=== PATIENT | female | born 1955 | race Caucasian/White ===

== ENCOUNTER 2017-11-12 19:18 | Inpatient (IN) | payer BC, SELFPAY ==
[2017-11-12 19:31] VITALS: BP 156/72; RESP 36; TEMP 37.1; O2SAT 84; BMI 25.0
[2017-11-12 19:55] VITALS: PULSE 102; PULSE 96
--- NOTE | 2017-11-12 19:58 | HMH.EDSOB ---
ED Disposition Clinical Impression: Flu, Acute exacerbation of chronic obstructive airways disease Disposition: Admitted as Observation Condition on Discharge: Good - Critical Care Critical Care Time: No Attestation: On , the high probability of a clinically significant, sudden or life threatening deterioration of the following system(s) required my full and direct attention, intervention and personal management. The time I documented below is in addition to time spent performing reported procedures but includes the following listed in this critical care notation. Medical Decision Making - Medical Records Medical records reviewed: Yes: I reviewed the patient's medical records. Vital Signs: 11/12/17 19:31 Temperature 98.8 F Temperature Source Oral Respiratory Rate 36 H Blood Pressure [Right Arm] 156/72 Blood Pressure Mean [Right Arm] 100 Blood Pressure Source [Right Arm] Automatic Cuff Blood Pressure Position [Right Arm] Supine 02 Sat by Pulse Oximetry 84 L Oxygen Delivery Method Room Air Oxygen Flow Rate (LPM) 5 - Lab Data Lab results reviewed: Yes: I reviewed the patient's lab results. Lab Results 11/12/17 19:45: WBC 9.0, RBC 4.64, Hgb 14.1, Hct 44.3, MCV 95.6, MCH 30.4, MCHC 31.8, RDW 13.8, Plt Count 179, MPV 8.6, Neut % (Auto) 85.2 H, Lymph % (Auto) 6.9 L, [place] % (Auto) 6.7, Eos % (Auto) 0.5, Baso % (Auto) 0.6, Neut # (Auto) 7.7, Lymph # (Auto) 0.6 L, [place] # (Auto) 0.6, Eos # (Auto) 0.1, Baso # (Auto) 0.1, Total Counted 100, Neutrophils % (Manual) 93 H, Lymphocytes % (Manual) 4 L, Monocytes % (Manual) 3, Platelet Estimate Normal, RBC Morphology Not Reportable, Stomatocytes 2+ 11/12/17 19:45: Chlamy pneumoniae PCR Not detected, Adenovirus (PCR) Not detected, B.parapertussis DNA PCR Not detected, Coronavirus OC43 (PCR) Not detected, Coronavirus HKU1 (PCR) Not detected, Coronavirus 229E (PCR) Not detected, Coronavirus NL63 (PCR) Not detected, Human Metapneumovir PCR Not detected, Influenza A (H1) PCR Not detected, Influ A (H1N1/09) PCR Not detected, Influenza A (H3) PCR Detected A, Influenza Type A (PCR) Not detected, Influenza Type B (PCR) Not detected, M. pneumoniae (PCR) Not detected, Parainfluenza 1 (PCR) Not detected, Parainfluenza 2 (PCR) Not detected, Parainfluenza 3 (PCR) Not detected, Parainfluenza 4 (PCR) Not detected, RSV (PCR) Not detected, Entero/Rhino (PCR) Not detected 11/12/17 20:22: Sodium 136, Potassium 3.5, Chloride 101, Carbon Dioxide 25, Anion Gap 13.5, BUN 10, Creatinine 0.98, Estimated Creat Clear 56, Estimated GFR 57 L, Est GFR ( Amer) > 60, Glucose 130 H, Calcium 8.8, Total Bilirubin 0.3, AST 25, ALT 25, Alkaline Phosphatase 71, Total Protein 7.2, Albumin 3.7, Globulin 3.5 H, Albumin/Globulin Ratio 1.1 11/12/17 20:22: Lactic Acid 1.5 11/12/17 20:22: Specimen Source Right radial, O2 % 36%, Bruce Test Acceptable Result diagrams: 11/12/17 19:45 11/12/17 20:22 Orders (Tests/Meds): ED MEDICATIONS Discontinued Medications Generic Name Dose Route Start Last Admin Trade Name Freq PRN Reason Stop Dose Admin Albuterol/Ipratropium 3 ml 11/12/17 19:55 11/12/17 19:57 Duoneb 3ml Neb IH 11/12/17 19:56 3 ml ONCE ONE Administration Methylprednisolone Sodium Succinate 125 mg 11/12/17 20:13 11/12/17 20:16 Solu-Medrol 125mg/2ml Vial IM 11/12/17 20:14 125 mg ONCE ONE Administration Methylprednisolone Sodium Succinate 125 mg 11/12/17 20:40 Solu-Medrol 125mg/2ml Vial IV 11/12/17 20:41 ONCE ONE ORDERS Category Date Time Status XR chest portable Stat Exams 11/12/17 20:09 Taken Cardiac Enzymes Stat Lab 11/12/17 20:22 Received Blood Culture Stat Micro 11/12/17 19:45 Received ABG [Arterial Blood Gas] Stat RT 11/12/17 20:12 Ordered Arterial Blood Gas Routine RT 11/12/17 20:22 Results - Radiology Data #1 Image Reviewed: Yes I reviewed the patient's radiology results Preliminary Findings: Normal/NAD - ECG Data Tracing #1 I re
--- NOTE | 2017-11-12 20:01 | ED_ITS ---
ED Disposition Clinical Impression: Flu, Acute exacerbation of chronic obstructive airways disease Disposition: Admitted as Observation Condition on Discharge: Good - Critical Care Critical Care Time: No Attestation: On , the high probability of a clinically significant, sudden or life threatening deterioration of the following system(s) required my full and direct attention, intervention and personal management. The time I documented below is in addition to time spent performing reported procedures but includes the following listed in this critical care notation. Medical Decision Making - Medical Records Medical records reviewed: Yes: I reviewed the patient's medical records. Vital Signs: 11/12/17 19:31 Temperature 98.8 F Temperature Source Oral Respiratory Rate 36 H Blood Pressure [Right Arm] 156/72 Blood Pressure Mean [Right Arm] 100 Blood Pressure Source [Right Arm] Automatic Cuff Blood Pressure Position [Right Arm] Supine 02 Sat by Pulse Oximetry 84 L Oxygen Delivery Method Room Air Oxygen Flow Rate (LPM) 5 - Lab Data Lab results reviewed: Yes: I reviewed the patient's lab results. Lab Results 11/12/17 19:45: WBC 9.0, RBC 4.64, Hgb 14.1, Hct 44.3, MCV 95.6, MCH 30.4, MCHC 31.8, RDW 13.8, Plt Count 179, MPV 8.6, Neut % (Auto) 85.2 H, Lymph % (Auto) 6.9 L, [place] % (Auto) 6.7, Eos % (Auto) 0.5, Baso % (Auto) 0.6, Neut # (Auto) 7.7 , Lymph # (Auto) 0.6 L, [place] # (Auto) 0.6, Eos # (Auto) 0.1, Baso # (Auto) 0.1, Total Counted 100, Neutrophils % (Manual) 93 H, Lymphocytes % (Manual) 4 L, Monocytes % (Manual) 3, Platelet Estimate Normal, RBC Morphology Not Reportable , Stomatocytes 2+ 11/12/17 19:45: Chlamy pneumoniae PCR Not detected, Adenovirus (PCR) Not detected, B.parapertussis DNA PCR Not detected, Coronavirus OC43 (PCR) Not detected, Coronavirus HKU1 (PCR) Not detected, Coronavirus 229E (PCR) Not detected, Coronavirus NL63 (PCR) Not detected, Human Metapneumovir PCR Not detected, Influenza A (H1) PCR Not detected, Influ A (H1N1/09) PCR Not detected , Influenza A (H3) PCR Detected A, Influenza Type A (PCR) Not detected, Influenza Type B (PCR) Not detected, M. pneumoniae (PCR) Not detected, Parainfluenza 1 (PCR) Not detected, Parainfluenza 2 (PCR) Not detected, Parainfluenza 3 (PCR) Not detected, Parainfluenza 4 (PCR) Not detected, RSV (PCR ) Not detected, Entero/Rhino (PCR) Not detected 11/12/17 20:22: Sodium 136, Potassium 3.5, Chloride 101, Carbon Dioxide 25, Anion Gap 13.5, BUN 10, Creatinine 0.98, Estimated Creat Clear 56, Estimated GFR 57 L, Est GFR ( Amer) > 60, Glucose 130 H, Calcium 8.8, Total Bilirubin 0.3, AST 25, ALT 25, Alkaline Phosphatase 71, Total Protein 7.2, Albumin 3.7, Globulin 3.5 H, Albumin/Globulin Ratio 1.1 11/12/17 20:22: Lactic Acid 1.5 11/12/17 20:22: Specimen Source Right radial, O2 % 36%, Bruce Test Acceptable Result diagrams: 11/12/17 19:45 11/12/17 20:22 Orders (Tests/Meds): ED MEDICATIONS Discontinued Medications Generic Name Dose Route Start Last Admin Trade Name Freq PRN Reason Stop Dose Admin Albuterol/Ipratropium 3 ml 11/12/17 19:55 11/12/17 19:57 Duoneb 3ml Neb IH 11/12/17 19:56 3 ml ONCE ONE Administration Methylprednisolone Sodium Succinate 125 mg 11/12/17 20:13 11/12/17 20:16 Solu-Medrol 125mg/2ml Vial IM 11/12/17 20:14 125 mg ONCE ONE Administration Methylprednisolone Sodium Succinate 125 mg 11/12/17 20:40 Solu-Medrol
[2017-11-12 20:09] LABS: Basophils # 0.1 K/mm3 (0-0.2); Basophils % 0.6 % (0.1-2.0); Eosinophils # 0.1 K/mm3 (0.0-0.4); Eosinophils % 0.5 % (0.1-12.0); Hematocrit 44.3 % (37.0-47.0); Hemoglobin 14.1 g/dL (12.2-16.2); Lymphocytes # 0.6 K/mm3 (0.7-4.5); Lymphocytes % 6.9 K/mm3 (10-50); Mean Corpuscular HGB Conc 31.8 g/dL (31.8-35.4); Mean Corpuscular Hemoglobin 30.4 pg (27.0-31.2); Mean Corpuscular Volume 95.6 fl (81-99); Mean Platelet Volume 8.6 fl (7.4-10.4); Monocytes # 0.6 K/mm3 (0.1-1.0); Monocytes % 6.7 % (1.7-9.3); Neutrophils # 7.7 K/mm3 (1.8-7.8); Neutrophils % 85.2 % (37.0-80.0); Platelet Count 179 K/mm3 (142-424); Red Blood Count 4.64 M/mm3 (4.20-5.40); Red Cell Distribution Width 13.8 % (11.5-17.5)
--- NOTE | 2017-11-12 20:09 | XR_ITS ---
XR chest portable HISTORY: Low to saturation, shortness of air ITS.REASON: SHORTNESS OF BREATH ORDERING PHYSICIAN: Chante Estrada MD PATIENT AGE: 62 years COMPARISON: None available FINDINGS: The cardiomediastinal silhouette and pulmonary vascularity are within normal limits. There is subtle increased density over the anterior aspect of the left third rib. While this may limit be due to summation artifact, one cannot exclude patchy area of infiltrate. Follow-up upright PA and lateral chest suggested for further evaluation. The remaining lungs are clear.. Calcification noted medial to the left acromioclavicular joint and may be related to calcific tendinitis. IMPRESSION: 1. Possible parenchymal opacity left upper lobe. Follow-up recommended. 2. Otherwise negative chest
[2017-11-12 20:16] LABS: MANUAL DIFFERENTIAL MANUAL DIFFERENTIAL (MANUAL DIFF)
[2017-11-12 20:20] LABS: Adenovirus,PCR Not Detected (NotDetected); Bordetella Pertussis Not Detected (NotDetected); Chlamydophila Pneumoniae, PCR Not Detected (NotDetected); Coronavirus 229E Not Detected (NotDetected); Coronavirus NL63 Not Detected (NotDetected); Coronavirus OC43 Not Detected (NotDetected); Coronovirus HKU1,PCR Not Detected (NotDetected); Human Metapneumovirus Not Detected (NotDetected); Influenza A, PCR Not Detected (NotDetected); Influenza AH1, 2009 Not Detected (NotDetected); Influenza AH1, PCR Not Detected (NotDetected); Influenza B, PCR Not Detected (NotDetected); Mycoplasma Pneumoniae, PCR Not Detected (NotDected); Parainfluenza 1, PCR Not Detected (NotDetected); Parainfluenza 2, PCR Not Detected (NotDetected); Parainfluenza 3, PCR Not Detected (NotDetected); Parainfluenza 4, PCR Not Detected (NotDetected); Respiratory Syncytial Virus Not Detected (NotDetected); Rhinovirus/Enterovirus Not Detected (NotDetected)
[2017-11-12 20:26] LABS: ABG Base Excess -2.7 mmol/L (-2.4-2.3); ABG HCO3 23.7 mmhg (22.0-26.0); ABG Oxygen Saturation 97 % (90-100); ABG PCO2 49.2 mmhg (35.0-45.0); ABG PO2 93.5 mmhg (80-100); ABG TCO2 25.2 mmhg (23-27)
[2017-11-12 20:31] LABS: Allen's Test Acceptable; Oxygen 36% %; Source Right Radial
[2017-11-12 20:49] LABS: Alanine Aminotransferase 25 U/L (12-78); Albumin Level 3.7 gm/dL (3.4-5.0); Albumin/Globulin Ratio 1.1 (1.1-1.8); Alkaline Phosphatase 71 U/L (46-116); Anion Gap 13.5 mEq/L (5-15); Aspartate Amino Transferase 25 U/L (15-37); Bilirubin,Total 0.3 mg/dL (0.2-1.0); Blood Urea Nitrogen 10 mg/dL (7-18); Calcium 8.8 mg/dL (8.5-10.1); Carbon Dioxide 25 mmol/L (21.0-32.0); Chloride 101 mmol/L (98-107); Creatinine Clearance Estimated 56 mg/ml (0-300); Creatinine,Serum 0.98 mg/dL (0.55-1.02); Estimated Glomerular Filt Rate 57 ml/min (>60); GFR (African American) > 60 ML/MIN (>60); Globulin 3.5 gm/dl (1.3-3.2); Glucose 130 mg/dL (74-106); Potassium 3.5 mmoL/L (3.5-5.1); Sodium 136 mmol/L (136-145); Total Protein,Serum 7.2 gm/dL (6.4-8.2)
[2017-11-12 20:54] LABS: Lactic Acid 1.5 mmol/L (0.4-2.0)
[2017-11-12 21:09] LABS: Lymphocytes % 4 % (10-50); Monocytes % 3 % (2-9); Neutrophils % 93 % (42-76); Total Cells Counted 100
[2017-11-12 21:10] LABS: Platelet Estimate Normal; Stomatocytes 2+
[2017-11-12 21:34] LABS: Influenza AH3,PCR Detected (NotDetected)
--- NOTE | 2017-11-12 21:52 | PC.NURSE ---
ROOM AIR SAT DOWN TO 76 %
[2017-11-12 22:07] LABS: CKMB Relative Index 1.4 U/L (0-4.0); Creatine Kinase 159 U/L (26-192); Creatine Kinase MB 2.2 mg/ml (0.0-3.6); Troponin I < 0.02 ng/ml (0.00-0.06)
[2017-11-12 22:09] VITALS: O2SAT 87; BMI 25.7
[2017-11-12 22:18] VITALS: BP 141/82; PULSE 102; RESP 20; TEMP 36.8; O2SAT 96
[2017-11-12 23:46] VITALS: PULSE 102; O2SAT 89
[2017-11-13] VITALS (10 sets, daily range): BP systolic 100–142; BP diastolic 52–67; PULSE 77–100; RESP 16–22; TEMP 36.4–36.8; O2SAT 90–96
--- NOTE | 2017-11-13 04:46 | PC.NURSE ---
PATIENT ADMITTED FROM ED FOR FLU AND ACUTE EXACERBATION OF COPD. PATIENTS O2 SAT HAS BEEN IN MID TO HIGH 80S AND FLUCTUATE WITH EVERY MOVEMENT. O2 SAT WAS 87% UPON ARRIVING TO FLOOR. PATIENT WAS GIVEN SOLUMEDROL AND DUONEB UPON COMING TO FLOOR, PATIENT COULD NOT ANSWER QUESTIONS DUE TO SOA. ALLOWED PATIENT TO CATCH BREATH BEFORE ADMISSION QUESTIONS. RT GAVE DUONEB. SATS REMAINED AT 90% ON 4 L RT PUT VENTI MASK ON @35%(9L). AT 0300 PATIENT SATS WAS 92%, THEY DECREASE WHEN TURNING IN BED. PATIENT WAS GIVEN TYLENOL TWICE DUE TO C/O ACHING ALL OVER. HR HAS BEEN IN LOW 100S AND RESP HAVE BEEN 18-22. B/P HAS REMAINED STABLE. NO C/O NAUSEA OR VOMITING SO FAR THIS SHIFT JUST SOA. PATIENT HAS REMAINED AFEBRILE. CALL LIGHT IN REACH, WILL CONTINUE TO MONITOR.
--- NOTE | 2017-11-13 07:53 | HMH.PHAVTE ---
[facility] Pharmacy VTE Monitoring - Patient Demographics Admission date: 11/12/17 Report Date: 11/13/17 Time: 07:54 Allergies/Adverse Reactions: almond Allergy (Severe, Verified 11/12/17 19:53) Hives Penicillins Allergy (Severe, Verified 11/12/17 19:53) Swelling of Lip/Tongue/Throat Sulfa (Sulfonamide Antibiotics) Allergy (Severe, Verified 11/12/17 19:53) Swelling of Lip/Tongue/Throat tetanus and diphtheria toxoids Allergy (Severe, Verified 11/12/17 19:53) Unknown allergy reaction codeine Allergy (Mild, Verified 11/12/17 19:53) Hives meperidine [From Demerol] Allergy (Mild, Verified 11/12/17 19:53) Hives morphine Allergy (Mild, Verified 11/12/17 19:53) Hives Height: 1.57 m Weight: 64.892 kg Patient Problems: Current Active Problems Flu (Acute) Acute exacerbation of chronic obstructive airways disease (Acute) - VTE Risk Labs: VTE Related Lab Results Hgb 14.1 g/dL (12.2-16.2) 11/12/17 19:45 Hct 44.3 % (37.0-47.0) 11/12/17 19:45 Plt Count 179 K/mm3 (142-424) 11/12/17 19:45 BUN 10 mg/dL (7-18) 11/12/17 20:22 Creatinine 0.98 mg/dL (0.55-1.02) 11/12/17 20:22 Estimated Creat Clear 56 mg/ml (0-300) 11/12/17 20:22 VTE Score: 4 VTE Risk Level: Low Risk Clinical Trial Participant: No - Prophylaxis VTE Prophylaxis Ordered?: Yes Types of VTE Prophylaxis: TEDS Knee High
--- NOTE | 2017-11-13 08:44 | HMH.HP ---
*Admission Date: 11/12/17 *Chief complaint: Shortness of breath *History of present illness: Ms. Younger is a 62-year-old female with a history of hypothyroidism and hyperlipidemia. She states approximately 2 days ago she began having flu-like symptoms consisting of fever, cough, sore throat, and body aches. She began chilling as well. She states she started getting short of breath and this progressed to the point where she had to present to the emergency room. She states her oxygen was 78% by the time she got to the emergency room. She uses no home oxygen. She was admitted and placed on oxygen started on Tamiflu. [facility] History I have reviewed the patient's past medical history: Yes Medical History: Reports:: Cancer (CERVICAL), Hyperlipidemia Denies:: Diabetes Mellitus Type 1, Diabetes Mellitus Type 2, MRSA Other Medical History: Reports: Hormone Therapy (PREMARIN), Thyroid Disease (LEVOTHYROXINE) Laterality Cases: Bilateral: Tonsillectomy Other Surgeries: Yes: Appendectomy, Hysterectomy-Partial Amputation: No Fractures: No - *Social History Educational Level: Completed College Smoking Status: Light tobacco smoker Tobacco Type: cigarettes # Packs/Day (cigarettes): 1 #Yrs smoked (if former smoker): 25 Smoking End Date: 1699 Alcohol Intake: current Alcohol Intake Frequency:: holidays/special occasions only Occupational Status: employed Housing: house Household Members: spouse - Psychiatric History Expresses thoughts of harming self/others: None Suicide Plan Description: No Plan *Family Hx:: Cancer, Thyroid Disorder Review of Systems - Constitutional Reports body ache(s), Reports chills, Reports fatigue, Reports fever(s), Reports headache(s), Reports malaise, Reports weakness - ENT Reports sore throat, Denies ear pain, Denies nasal congestion - *Cardiovascular Reports shortness of breath, Denies chest pain - *Respiratory Reports chest congestion, Reports cough, Reports shortness of breath - *Gastrointestinal Reports nausea, Denies abdominal pain, Denies loose stools, Denies vomiting - *Genitourinary Denies difficulty urinating, Denies painful urination - *Musculoskeletal Reports muscle weakness, Reports body aches - *Neurologic Reports headache(s) Meds Home Medications Medication Instructions Recorded Confirmed Type Albuterol Sulfate [Proventil-HFA 90 mcg INHALATION NEEDED PRN 11/13/17 11/13/17 History 90mcg/puff Inh] Aspirin [Aspirin 81mg EC Tab] 81 mg PO DAILY 11/13/17 11/13/17 History Azithromycin [Azithromycin 500mg 500 mg PO DAILY 11/13/17 11/13/17 History Tab] Cholecalciferol (Vitamin D3) 2,000 unit PO DAILY 11/13/17 11/13/17 History [Vitamin D3] Estrogens, Conjugated [Premarin 0.625 mg PO DAILY 11/13/17 11/13/17 History 0.625mg tablet] Levothyroxine Sodium 88 mcg PO DAILY 11/13/17 11/13/17 History [Levothyroxine 88mcg (0.088mg) Tab] Pravastatin Sodium [Pravachol] 40 mg PO DAILY 11/13/17 11/13/17 History Allergies Allergy/AdvReac Type Severity Reaction Status Date / Time almond Allergy Severe Hives Verified 11/12/17 19:53 Penicillins Allergy Severe Swelling Verified 11/12/17 19:53 of Lip/Tongue/Throat Sulfa (Sulfonamide Allergy Severe Swelling Verified 11/12/17 19:53 Antibiotics) of Lip/Tongue/Throat tetanus and diphtheria Allergy Severe Unknown Verified 11/12/17 19:53 toxoids allergy reaction codeine Allergy Mild Hives Verified 11/12/17 19:53 meperidine [From Demerol] Allergy Mild Hives Verified 11/12/17 19:53 morphine Allergy Mild Hives Verified 11/12/17 19:53 Exam Vital signs and Labs for Last 24 Hours: Temp Pulse Resp BP Pulse Ox 98 F 83 16 142/67 92 L 11/13/17 04:00 11/13/17 06:21 11/13/17 04:00 11/13/17 04:00 11/13/17 06:21 I & O for Last 24 hours: Intake & Output 11/10/17 11/11/17 11/12/17 11/13/17 11:59 11:59 11:59 11:59 Intake Total 632 / 632 Balance 632 / 632 Comments
--- NOTE | 2017-11-13 08:47 | P.HP_ITS ---
*Admission Date: 11/12/17 *Chief complaint: Shortness of breath *History of present illness: Ms. Younger is a 62-year-old female with a history of hypothyroidism and hyperlipidemia. She states approximately 2 days ago she began having flu-like symptoms consisting of fever, cough, sore throat, and body aches. She began chilling as well. She states she started getting short of breath and this progressed to the point where she had to present to the emergency room. She states her oxygen was 78% by the time she got to the emergency room. She uses no home oxygen. She was admitted and placed on oxygen started on Tamiflu. [facility] History I have reviewed the patient's past medical history: Yes Medical History: Reports:: Cancer (CERVICAL), Hyperlipidemia Denies:: Diabetes Mellitus Type 1, Diabetes Mellitus Type 2, MRSA Other Medical History: Reports: Hormone Therapy (PREMARIN), Thyroid Disease ( LEVOTHYROXINE) Laterality Cases: Bilateral: Tonsillectomy Other Surgeries: Yes: Appendectomy, Hysterectomy-Partial Amputation: No Fractures: No - *Social History Educational Level: Completed College Smoking Status: Light tobacco smoker Tobacco Type: cigarettes # Packs/Day (cigarettes): 1 #Yrs smoked (if former smoker): 25 Smoking End Date: 1699 Alcohol Intake: current Alcohol Intake Frequency:: holidays/special occasions only Occupational Status: employed Housing: house Household Members: spouse - Psychiatric History Expresses thoughts of harming self/others: None Suicide Plan Description: No Plan *Family Hx:: Cancer, Thyroid Disorder Review of Systems - Constitutional Reports body ache(s), Reports chills, Reports fatigue, Reports fever(s), Reports headache(s), Reports malaise, Reports weakness - ENT Reports sore throat, Denies ear pain, Denies nasal congestion - *Cardiovascular Reports shortness of breath, Denies chest pain - *Respiratory Reports chest congestion, Reports cough, Reports shortness of breath - *Gastrointestinal Reports nausea, Denies abdominal pain, Denies loose stools, Denies vomiting - *Genitourinary Denies difficulty urinating, Denies painful urination - *Musculoskeletal Reports muscle weakness, Reports body aches - *Neurologic Reports headache(s) Meds Home Medications Medication Instructions Recorded Confirmed Type Albuterol Sulfate [Proventil-HFA 90 mcg INHALATION NEEDED PRN 11/13/17 History 90mcg/puff Inh] Aspirin [Aspirin 81mg EC Tab] 81 mg PO DAILY 11/13/17 11/13/17 History Azithromycin [Azithromycin 500mg 500 mg PO DAILY 11/13/17 11/13/17 History Tab] Cholecalciferol (Vitamin D3) 2,000 unit PO DAILY 11/13/17 11/13/17 History [Vitamin D3] Estrogens, Conjugated [Premarin 0.625 mg PO DAILY 11/13/17 11/13/17 History 0.625mg tablet] Levothyroxine Sodium 88 mcg PO DAILY 11/13/17 11/13/17 History [Levothyroxine 88mcg (0.088mg) Tab] Pravastatin Sodium [Pravachol] 40 mg PO DAILY 11/13/17 11/13/17 History Allergies Allergy/AdvReac Type Severity Reaction Status Date / Time almond Allergy Severe Hives Verified 11/12/17 19:53 Penicillins Allergy Severe Swelling Verified 11/12/17 19:53 of Lip/Tongue/Throat Sulfa (Sulfonamide Allergy Severe Swelling Verified 11/12/17 19:53 Antibiotics) of Lip/Tongue/Throat tetanus and diphtheria Allergy Severe Unknown Verified 11/12/17 19:53 toxoids allergy
--- NOTE | 2017-11-13 19:04 | PC.NURSE ---
Pt has episodes of coughing, is relieved with cough med. denies any issues at this time. ambulating to and from bathroom with minimal assistance.
[2017-11-14] VITALS (12 sets, daily range): BP systolic 0–139; BP diastolic 0–61; PULSE 59–87; RESP 18–22; TEMP 36.3–36.8; O2SAT 93–97
--- NOTE | 2017-11-14 07:22 | PC.NURSE ---
Report given to Kwan Martinez WC/ SRNA
--- NOTE | 2017-11-14 08:43 | HMH.ACPN ---
Internal Medicine - PN: Subj *Date: 11/14/17 *Time: 08:43 Interval history: She is feeling quite a bit better today. She still is very fatigued. She has been on an oxygen mask all night, but was placed on nasal oxygen this a.m. with good saturations. She has been able to get up and go to the bathroom. She does get short of breath with any exertion. She denies any pain. She slept off and on last night and has been eating. Exam Vital signs and Labs for Last 24 Hours: Temp Pulse Resp BP Pulse Ox 97.4 F L 73 20 139/61 93 L 11/14/17 04:30 11/14/17 06:14 11/14/17 04:30 11/14/17 04:30 11/14/17 06:14 I & O for Last 24 hours: Intake & Output 11/11/17 11/12/17 11/13/17 11/14/17 11:59 11:59 11:59 11:59 Intake Total 992 / 992 480 / 480 Output Total 300 / 300 600 / 600 Balance 692 / 692 -120 / -120 no acute distress (Looks much better) - *Routine Respiratory Exam Present: wheezes (Much less with better air movement) - *Routine Cardiovascular Exam Present: RRR - *Routine Abdominal Exam Present: soft, normoactive bowel sounds. Absent: tenderness - *Routine Extremities Exam Absent: edema Assessment and Plan (1) Flu Current visit: Yes Status: Acute Category: Medical Code(s): J11.1 - Influenza due to unidentified influenza virus with other respiratory manifestations (2) Respiratory distress Current visit: Yes Status: Acute Category: Medical Code(s): R06.03 - Acute respiratory distress (3) Hypoxia Current visit: Yes Status: Acute Category: Medical Code(s): R09.02 - Hypoxemia (4) Hypothyroidism Current visit: Yes Status: Chronic Category: Medical Code(s): E03.9 - Hypothyroidism, unspecified (5) Hyperlipidemia Current visit: Yes Status: Chronic Category: Medical Code(s): E78.5 - Hyperlipidemia, unspecified - Assessment and plan all Dx Assessment and Plan for all problems:: Will continue current treatment. Patient is improving.
[2017-11-15] VITALS (7 sets, daily range): BP systolic 0–125; BP diastolic 0–59; PULSE 56–86; RESP 19–20; TEMP 36.4–36.8; O2SAT 91–98
--- NOTE | 2017-11-15 06:37 | PC.NURSE ---
PT HAS RESTED ON AND OFF T/O SHIFT, HAS HAD A DRY HACKY COUGH,, MEDICATED WITH PRN COUGH MEDICATION. TOLERATING 2L O2 NC WELL. EXPIRATORY WHEEZES NOTED DURING LUNG AUSCULTATION. BS ACTIVE IN ALL 4 QAUDS. VSS. NO ACUTE DISTRESS NOTED, WILL CONTINUE TO MONITOR.
--- NOTE | 2017-11-15 07:23 | PC.NURSE ---
REPORT GIVEN TO Kwan PROCTOR WC/SRNA
--- NOTE | 2017-11-15 08:13 | PC.NURSE ---
REPORT GIVEN TO Tiera BATEMAN RN
[2017-11-16 04:00] VITALS: BP 137/77; PULSE 71; RESP 20; TEMP 36.9; O2SAT 98
[2017-11-16 04:08] VITALS: O2SAT 92
--- NOTE | 2017-11-16 05:38 | PC.NURSE ---
ATTEMPTED TO WEAN PT FROM 3L NC, PT DROPPED TO 85 BUT DENIED SOB, 2L APPLIED TO PT, SATS STABLE NOW. PT DENIED PAINT THIS SHIFT BUT STATES THE OXYGEN IS IRRITATING TO HER MUCOUS MEMBRANES, VASELINE GIVEN TO APPLY TO HER NARES, HUMIDIFIER IN PLACE. FAINT EXPIRATORY WHEEZES NOTED TO FOSTER. BASES. BS ACTIVE IN ALL 4 QAUDS. VSS. A&OX3. NO ACUTE DISTRESS NOTED. WILL CONTINUE TO MONITOR.
[2017-11-16 06:11] VITALS: PULSE 82; PULSE 83
[2017-11-16 06:44] LABS: Hematocrit 40.5 % (37.0-47.0); Hemoglobin 12.6 g/dL (12.2-16.2); Mean Corpuscular HGB Conc 31.1 g/dL (31.8-35.4); Mean Corpuscular Hemoglobin 29.9 pg (27.0-31.2); Mean Corpuscular Volume 96.1 fl (81-99); Platelet Count 172 K/mm3 (142-424); Red Blood Count 4.22 M/mm3 (4.20-5.40); Red Cell Distribution Width 13.7 % (11.5-17.5); White Blood Count 8.6 K/mm3 (4.8-10.8)
[2017-11-16 06:45] LABS: Basophils % 0.1 % (0.1-2.0); Eosinophils % 0.2 % (0.1-12.0); Lymphocytes # 1.1 K/mm3 (0.7-4.5); Lymphocytes % 12.7 K/mm3 (10-50); Mean Platelet Volume 7.9 fl (7.4-10.4); Monocytes # 0.3 K/mm3 (0.1-1.0); Monocytes % 3.2 % (1.7-9.3); Neutrophils # 7.2 K/mm3 (1.8-7.8); Neutrophils % 83.7 % (37.0-80.0)
[2017-11-16 06:56] LABS: Alanine Aminotransferase 61 U/L (12-78); Albumin Level 2.9 gm/dL (3.4-5.0); Alkaline Phosphatase 56 U/L (46-116); Anion Gap 7.2 mEq/L (5-15); Aspartate Amino Transferase 57 U/L (15-37); Bilirubin,Total 0.3 mg/dL (0.2-1.0); Blood Urea Nitrogen 15 mg/dL (7-18); Calcium 8.1 mg/dL (8.5-10.1); Carbon Dioxide 33 mmol/L (21.0-32.0); Chloride 105 mmol/L (98-107); Creatinine Clearance Estimated 58 mL/min (0-300); Creatinine,Serum 0.85 mg/dL (0.55-1.02); Estimated Glomerular Filt Rate > 60 ml/min (>60); GFR (African American) > 60 ML/MIN (>60); Glucose 139 mg/dL (74-106); Potassium 4.2 mmoL/L (3.5-5.1); Sodium 141 mmol/L (136-145); Total Protein,Serum 5.9 gm/dL (6.4-8.2)
[2017-11-16 07:12] LABS: Chol/HDL Ratio 1.5 (1-3.5); Cholesterol 119 mg/dL (140-200); HDL Cholesterol 78 mg/dL (29-89); LDL Cholesterol 28 mg/dL (0-130); Triglycerides 67 mg/dL (30-200); VLDL Cholesterol 13 mg/dL (0-40)
--- NOTE | 2017-11-16 07:19 | PC.NURSE ---
REPORT GIVEN TO Angel HILARIO
--- NOTE | 2017-11-16 08:06 | PC.NURSE ---
report given to doretha bolivar rn
[2017-11-16 08:13] VITALS: BP 149/59; PULSE 62; RESP 20; TEMP 36.9; O2SAT 95
--- NOTE | 2017-11-16 08:44 | HMH.ACPN ---
Internal Medicine - PN: Subj *Date: 11/16/17 *Time: 08:44 Interval history: Ms. Younger is feeling well and is ready for discharge. She maintains her nasal O2. He walks without it her sats drop into the 85 range. Supplemental home O2 should be ordered. Do not believe she will be following up with her primary care doctor, Dr. Colon in [place]. He was started on Tamiflu on Thursday evening when she came in that she will need about 3 more doses. Exam Vital signs and Labs for Last 24 Hours: Temp Pulse Resp BP Pulse Ox 98.4 F 62 20 149/59 95 11/16/17 08:13 11/16/17 08:13 11/16/17 08:13 11/16/17 08:13 11/16/17 08:13 Laboratory Results - last 24 hr 11/16/17 06:05: WBC 8.6, RBC 4.22, Hgb 12.6, Hct 40.5, MCV 96.1, MCH 29.9, MCHC 31.1 L, RDW 13.7, Plt Count 172, MPV 7.9, Neut % (Auto) 83.7 H, Lymph % (Auto) 12.7, [place] % (Auto) 3.2, Eos % (Auto) 0.2, Baso % (Auto) 0.1, Neut # (Auto) 7.2, Lymph # (Auto) 1.1, [place] # (Auto) 0.3, Eos # (Auto) 0.0, Baso # (Auto) 0.0 11/16/17 06:05: Sodium 141, Potassium 4.2, Chloride 105, Carbon Dioxide 33 H, Anion Gap 7.2, BUN 15, Creatinine 0.85, Estimated Creat Clear 58, Estimated GFR > 60, Est GFR ( Amer) > 60, Glucose 139 H, Calcium 8.1 L, Total Bilirubin 0.3, AST 57 H, ALT 61, Alkaline Phosphatase 56, Total Protein 5.9 L, Albumin 2.9 L, Globulin 3.0, Albumin/Globulin Ratio 1.0 L 11/16/17 06:05: Triglycerides 67, Cholesterol 119 L, LDL Cholesterol 28, VLDL Cholesterol 13, HDL Cholesterol 78, Cholesterol/HDL Ratio 1.5 I & O for Last 24 hours: Intake & Output 11/13/17 11/14/17 11/15/1708/18 11:59 11:59 11:59 11:59 Intake Total 992 / 992 840 / 840 960 / 960 750 / 750 Output Total 300 / 300 600 / 600 Balance 692 / 692 240 / 240 960 / 960 750 / 750 - Constitutional no acute distress - *Routine HEENT Exam Head: Present: normocephalic Eye: Present: PERRL ENT: Present: mucous membranes moist - *Routine Respiratory Exam Present: diminished air movement Comments: One wheeze heard - *Routine Cardiovascular Exam Present: RRR - *Routine Abdominal Exam Present: soft - *Routine Neurological Exam Intact Assessment and Plan - Assessment and plan all Dx Assessment and Plan for all problems:: She will be discharged on her regular medicines. She will given a prescription for Tamiflu for 3 more doses. Home oxygen will be ordered. She will follow-up with Dr. Colon.
[2017-11-16 10:02] VITALS: PULSE 59; O2SAT 96
--- NOTE | 2017-11-16 11:07 | PC.NURSE ---
Addendum entered by Tricia Mane RN 11/16/17 17:30: Downtime EMAR documentation for 11/15/17 from Downtime documentation forms for Tiera Portillo. Scribed per Danna Mane RN. Original Note: Addendum entered by Tricia Mane RN 11/16/17 17:30: Scribed per Rosa Mane RN Original Note: Documentation from 11/15/17 Downtime documentation forms for Catalina Portillo RN per Rosa Mane RN.
--- NOTE | 2017-11-16 11:37 | PC.NURSE ---
PT IS SITTING UP IN THE CHAIR TALKING TO FAMILY AT THIS TIME. I REMOVED OXYGEN FOR 10 MIN AND HER O2 SATURATION WAS ONLY 87% ON ROOM AIR AT REST.
--- NOTE | 2017-11-16 11:51 | SW/DCPLANNER ---
Received referral regarding home o2 for this patient. Patient information has been faxed to [facility] and I have spoke with Radha. Radha has stated that all patient information was received and they will deliver home o2 to this patient.
--- NOTE | 2017-11-17 14:57 | PC.NURSE ---
I AM DOCUMENTING INFORMATION PROVIDED BY JAYY VALLE ON DOWNTIME FORMS FOR 11/15/17.
--- NOTE | 2017-11-17 18:05 | HMH.DCSUM ---
General - General Admission date: 11/12/17 Discharge date: 11/16/17 HPI HPI: Ms. Younger is a 62-year-old female with a history of hypothyroidism and hyperlipidemia. She states approximately 2 days ago she began having flu-like symptoms consisting of fever, cough, sore throat, and body aches. She began chilling as well. She states she started getting short of breath and this progressed to the point where she had to present to the emergency room. She states her oxygen was 78% by the time she got to the emergency room. She uses no home oxygen. She was admitted and placed on oxygen started on Tamiflu d/t a positive flu test. Objective Vital signs: Temp Pulse Resp BP Pulse Ox 98.4 F 59 L 20 149/59 96 11/16/17 08:13 11/16/17 10:02 11/16/17 08:13 11/16/17 08:13 11/16/17 10:02 Narrative: Gen: Does not appear to feel well - *Routine HEENT Exam Head: Present: normocephalic, atraumatic Eye: Present: PERRL ENT: Present: mucous membranes moist, oropharynx clear - *Routine Neck Exam Present: supple, full ROM, lymphadenopathy - *Routine Respiratory Exam Present: rhonchi, wheezes, diminished air movement - *Routine Cardiovascular Exam Present: RRR - *Routine Abdominal Exam Present: soft, normoactive bowel sounds. Absent: tenderness - *Routine Extremities Exam Absent: edema - *Routine Skin Exam Present: intact - *Routine Neurological Exam Present: alert, oriented X3, CN II-XII intact Hospital Course Hospital Course: Her CXR showed a possible parenchymal opacity left upper lobe. Her home medications were resumed. She improved quickly and was able to be weaned from the oxygen mask to nasal oxygen. Her fatigue improved. She was able to get up and OOB. Her oxygen level dropped when up and moving into the 80's without oxygen. She was stable to be discharged home on tamiflu and supplemental oxygen. She will f/u with her PCP. DS: Diagnosis - Discharge Diagnosis (1) Flu Status: Acute (2) Respiratory distress Status: Acute (3) Hypoxia Status: Acute (4) Hypothyroidism Status: Chronic (5) Hyperlipidemia Status: Chronic Meds Home Medications Medication Instructions Recorded Confirmed Type Albuterol Sulfate [Proventil-HFA 90 mcg INHALATION NEEDED PRN 11/13/17 11/13/17 History 90mcg/puff Inh] Aspirin [Aspirin 81mg EC Tab] 81 mg PO DAILY 11/13/17 11/13/17 History Cholecalciferol (Vitamin D3) 2,000 unit PO DAILY 11/13/17 11/13/17 History [Vitamin D3] Estrogens, Conjugated [Premarin 0.625 mg PO DAILY 11/13/17 11/13/17 History 0.625mg tablet] Levothyroxine Sodium 88 mcg PO DAILY 11/13/17 11/13/17 History [Levothyroxine 88mcg (0.088mg) Tab] Pravastatin Sodium [Pravachol] 40 mg PO DAILY 11/13/17 11/13/17 History Umeclidinium Brm/Vilanterol Tr 1 puff INHALATION BID 11/13/17 11/13/17 History [Anoro Ellipta 62.5-25 Mcg INH] Allergies Allergy/AdvReac Type Severity Reaction Status Date / Time almond Allergy Severe Hives Verified 11/12/17 19:53 Penicillins Allergy Severe Swelling Verified 11/12/17 19:53 of Lip/Tongue/Throat Sulfa (Sulfonamide Allergy Severe Swelling Verified 11/12/17 19:53 Antibiotics) of Lip/Tongue/Throat tetanus and diphtheria Allergy Severe Unknown Verified 11/12/17 19:53 toxoids allergy reaction codeine Allergy Mild Hives Verified 11/12/17 19:53 meperidine [From Demerol] Allergy Mild Hives Verified 11/12/17 19:53 morphine Allergy Mild Hives Verified 11/12/17 19:53 Disposition Disposition: Home, Self-Care
--- NOTE | 2017-11-17 18:15 | P.DS_ITS ---
General - General Admission date: 11/12/17 Discharge date: 11/16/17 HPI HPI: Ms. Younger is a 62-year-old female with a history of hypothyroidism and hyperlipidemia. She states approximately 2 days ago she began having flu-like symptoms consisting of fever, cough, sore throat, and body aches. She began chilling as well. She states she started getting short of breath and this progressed to the point where she had to present to the emergency room. She states her oxygen was 78% by the time she got to the emergency room. She uses no home oxygen. She was admitted and placed on oxygen started on Tamiflu d/t a positive flu test. Objective Vital signs: Temp Pulse Resp BP Pulse Ox 98.4 F 59 L 20 149/59 96 11/16/17 08:13 11/16/17 10:02 11/16/17 08:13 11/16/17 08:13 11/16/17 10:02 Narrative: Gen: Does not appear to feel well - *Routine HEENT Exam Head: Present: normocephalic, atraumatic Eye: Present: PERRL ENT: Present: mucous membranes moist, oropharynx clear - *Routine Neck Exam Present: supple, full ROM, lymphadenopathy - *Routine Respiratory Exam Present: rhonchi, wheezes, diminished air movement - *Routine Cardiovascular Exam Present: RRR - *Routine Abdominal Exam Present: soft, normoactive bowel sounds. Absent: tenderness - *Routine Extremities Exam Absent: edema - *Routine Skin Exam Present: intact - *Routine Neurological Exam Present: alert, oriented X3, CN II-XII intact Hospital Course Hospital Course: Her CXR showed a possible parenchymal opacity left upper lobe. Her home medications were resumed. She improved quickly and was able to be weaned from the oxygen mask to nasal oxygen. Her fatigue improved. She was able to get up and OOB. Her oxygen level dropped when up and moving into the 80's without oxygen. She was stable to be discharged home on tamiflu and supplemental oxygen. She will f/u with her PCP. DS: Diagnosis - Discharge Diagnosis (1) Flu Status: Acute (2) Respiratory distress Status: Acute (3) Hypoxia Status: Acute (4) Hypothyroidism Status: Chronic (5) Hyperlipidemia Status: Chronic Meds Home Medications Medication Instructions Recorded Confirmed Type Albuterol Sulfate [Proventil-HFA 90 mcg INHALATION NEEDED PRN 11/13/17 History 90mcg/puff Inh] Aspirin [Aspirin 81mg EC Tab] 81 mg PO DAILY 11/13/17 11/13/17 History Cholecalciferol (Vitamin D3) 2,000 unit PO DAILY 11/13/17 11/13/17 History [Vitamin D3] Estrogens, Conjugated [Premarin 0.625 mg PO DAILY 11/13/17 11/13/17 History 0.625mg tablet] Levothyroxine Sodium 88 mcg PO DAILY 11/13/17 11/13/17 History [Levothyroxine 88mcg (0.088mg) Tab] Pravastatin Sodium [Pravachol] 40 mg PO DAILY 11/13/17 11/13/17 History Umeclidinium Brm/Vilanterol Tr 1 puff INHALATION BID 11/13/17 11/13/17 History [Anoro Ellipta 62.5-25 Mcg INH] Allergies Allergy/AdvReac Type Severity Reaction Status Date / Time almond Allergy Severe Hives Verified 11/12/17 19:53 Penicillins Allergy Severe Swelling Verified 11/12/17 19:53 of Lip/Tongue/Throat Sulfa (Sulfonamide Allergy Severe Swelling Verified 11/12/17 19:53 Antibiotics) of Lip/Tongue/Throat tetanus and diphtheria Allergy Yudelka
== END 2017-11-16 12:41 | disposition home or self-care (01) | DRG 153 ==
LOC: ER 21:32 → 2ND 22:16
PROVIDERS: Emergency Medicine; Admitting Provider Family Medicine; Emergency Provider Emergency Medicine; Visit Provider Family Medicine
DX: J11.1 Influenza due to unidentified influenza virus with other respiratory manifestations (principal); E03.9 Hypothyroidism, unspecified; E78.5 Hyperlipidemia, unspecified
CPT/HCPCS: 36415; 71045; 80053; 80061; 82550; 82553; 82803; 83605; 84484; 85007; 85025; 87040; 87486; 87581; 87633; 87798; 93005; 93041; 94640; 94760; 94761; 99284; 99406; J0456

== ENCOUNTER → 2021-05-23 12:33 | Outpatient (CLI) | payer MEDICARE, BC, SELFPAY ==
--- NOTE | 2021-05-23 12:39 | MM_ITS ---
PROCEDURE: MM DIG SCREENING MAMM BI W/CAD Digital Breast Tomosynthesis Included CLINICAL INDICATION: SCREENING There is history of breast cancer in the patient's sister. The patient currently is on Premarin COMPARISON: [facility] S[facility] MAMMO W/CAD BILAT from 04/15/2018 MG [facility] S[facility] MAMMO W/CAD BILAT from 04/27/2019 outside studies TECHNIQUE: Standard CC and MLO images and 3D Tomosynthesis was obtained. R2 CAD reviewed. FINDINGS: There are mild to moderate scattered fibroglandular densities in each breast. The findings are bilateral symmetrical. There are few scattered benign-appearing microcalcifications in each breast. There is a stable small benign-appearing nodular density outer quadrant left breast likely an intramammary node. There is no suspicious lesion and no suspicious microcalcifications. IMPRESSION: Fibrofatty parenchyma with no suspicious lesions seen BI-RAD Category: 2 Benign Finding(s) FOLLOW-UP: 1YR 1 Year Follow-up (A letter has been sent to the patient regarding results of the study.) Dictated by: Dr. Sean Varela MD 05/29/2021 08:02 Dr. Sean Varela MD in [place] 05/29/2021 08:02
== END ==
PROVIDERS: PCP Family Medicine; Visit Provider Family Medicine
DX: Z12.31 Encounter for screening mammogram for malignant neoplasm of breast (principal)
CPT/HCPCS: 77063; 77067

== ENCOUNTER 2021-06-10 09:40 | Emergency (ER) | payer MEDICARE, BC, SELFPAY ==
[2021-06-10 09:41] VITALS: BP 110/78; PULSE 73; RESP 16; TEMP 37.1; O2SAT 98; BMI 29.2
[2021-06-10 09:57] VITALS: BP 110/78; PULSE 78; O2SAT 94
--- NOTE | 2021-06-10 10:16 | XR_ITS ---
PROCEDURE: XR CHEST PORTABLE CLINICAL HISTORY: cough COMPARISON: CR [id number] XR chest portable from 11/12/2017 FINDINGS: The cardiomediastinal silhouette and pulmonary vascularity are within normal limits. The lungs are clear without infiltrates, suspicious nodules, or pleural effusions. No acute bony abnormalities. IMPRESSION: No acute findings. Dictated by: Bruce Schultz MD 06/10/2021 15:26 Bruce Schultz MD in [place] 06/10/2021 15:26
--- NOTE | 2021-06-10 10:24 | HMH.EDGENADL ---
ED Disposition Clinical Impression: COVID-19 virus test result unknown, Cough Diarrhea Qualifiers: Diarrhea type: unspecified type Qualified Code(s): R19.7 - Diarrhea, unspecified Disposition: Home, Self-Care Condition on Discharge: Good Instructions: Cough Additional Instructions: Please remain in quarantine until your COVID-19 test results May take Tylenol and ibuprofen as needed for fever reduction Please use albuterol inhaler or nebulizer treatment as needed for shortness of breath. If symptoms persist or worsen, if you are unable to perform your activities of daily living, please return to the ED for further evaluation Prescriptions: Albuterol Sulfate [Albuterol 0.083% 2.5mg/3mL neb] 2.5 mg IH Q4-6H #60 mg Prescription Printed Referrals: Tian Singh MD [Primary Care Provider] - - Critical Care Critical Care Time: No Attestation: On 06/10/21, the high probability of a clinically significant, sudden or life threatening deterioration of the following system(s) required my full and direct attention, intervention and personal management. The time I documented below is in addition to time spent performing reported procedures but includes the following listed in this critical care notation. Medical Decision Making - Medical Records Medical records reviewed: Yes: I reviewed the patient's medical records. - Emile Inquiry Pt receiving controlled substance: No Vital Signs: 06/10/21 09:41 06/10/21 09:57 06/10/21 10:31 Temperature 98.8 F Temperature Source Oral Pulse Rate 78 80 Pulse Rate [Right] 73 Respiratory Rate 16 Blood Pressure 110/78 112/60 Blood Pressure [Right Arm] 110/78 Blood Pressure Mean 72 Blood Pressure Mean [Right Arm] 88 02 Sat by Pulse Oximetry 98 94 L 95 Oxygen Delivery Method Room Air - Lab Data Lab results reviewed: Yes: I reviewed the patient's lab results. Lab Results 06/10/21 10:00: WBC 7.3, RBC 4.51, Hgb 13.4, Hct 40.0, MCV 88.7, MCH 29.7, MCHC 33.5, RDW 14.7, Plt Count 184, MPV 8.2, Neut % (Auto) 74.7, Lymph % (Auto) 20.2, [place] % (Auto) 4.3, Eos % (Auto) 0.1, Baso % (Auto) 0.7, Neut # (Auto) 5.4, Lymph # (Auto) 1.5, [place] # (Auto) 0.3, Eos # (Auto) 0.0, Baso # (Auto) 0.1 06/10/21 10:00: Sodium 135 L, Potassium 4.0, Chloride 103, Carbon Dioxide 25, Anion Gap 11.0, BUN 11, Creatinine 0.90, Estimated Creat Clear 63, Estimated GFR 62, Est GFR ( Amer) 76, Glucose 98, Calcium 8.9, Total Bilirubin 0.6, AST 41 H, ALT 18, Alkaline Phosphatase 101, Total Protein 7.1, Albumin 3.9, Globulin 3.2, Albumin/Globulin Ratio 1.2 Result diagrams: 06/10/21 10:00 06/10/21 10:00 Orders (Tests/Meds): ORDERS Category Date Time Status CXR --portable [XR chest portable] Stat Exams 06/10/21 10:16 Taken Covid-19 Nasal PCR ([facility]) Routine Lab 06/10/21 09:59 Received Medical Decision Narrative: Upon presentation, patient is hemodynamically stable and nontoxic-appearing. Patient presents with diarrhea, cough, loss of taste and smell concerning for COVID-19 infection. Patient is fully vaccinated. Differential diagnosis includes but is not limited to COVID-19 infection, viral URI, viral gastroenteritis. Labs including CBC, CMP were obtained along with a chest x-ray and rapid Covid test. I reviewed patient's labs. Patient's labs were nonactionable. Patient's chest x-ray does not demonstrate any signs of focal pneumonia. At this time, patient appears well, does not of any electrolyte abnormalities in the setting of diarrhea. Patient's Covid test has not resulted, however, patient be discharged stable condition with recommendations to remain in quarantine until her test results. Patient expressed understanding and she was discharged in stable condition. General Adult HPI - General Chief complaint: Fever Stated complaint: loss taste/smell, sore throat, fever Time Seen by Provider: 06/10/21 09:55 Mode of Arrival: Family Vehicle Source of Information: Cindy
[2021-06-10 10:26] LABS: Alanine Aminotransferase 18 U/L (12-78); Albumin Level 3.9 g/dl (3.5-5.0); Albumin/Globulin Ratio 1.2 (1.1-1.8); Alkaline Phosphatase 101 U/L (38-126); Aspartate Amino Transferase 41 U/L (14-36); Bilirubin,Total 0.6 mg/dl (0.2-1.3); Blood Urea Nitrogen 11 mg/dl (7-17); Calcium 8.9 mg/dl (8.4-10.2); Carbon Dioxide 25 mmol/L (22.0-30.0); Chloride 103 mmol/L (98-107); Creatinine Clearance Estimated 63 mL/min (50-200); Estimated Glomerular Filt Rate 62 ml/min (>60); GFR (African American) 76 ML/MIN (>60); Globulin 3.2 g/dL (1.3-3.2); Glucose 98 mg/dl (74-100); Sodium 135 mmol/L (136-145); Total Protein,Serum 7.1 g/dl (6.3-8.2)
[2021-06-10 10:27] LABS: Basophils # 0.1 K/mm3 (0-0.2); Basophils % 0.7 % (0.1-2.0); Eosinophils % 0.1 % (0.1-12.0); Hemoglobin 13.4 g/dL (12.2-16.2); Lymphocytes # 1.5 K/mm3 (0.7-4.5); Lymphocytes % 20.2 % (10-50); Mean Corpuscular HGB Conc 33.5 g/dL (31.8-35.4); Mean Corpuscular Hemoglobin 29.7 pg (27.0-31.2); Mean Corpuscular Volume 88.7 fl (81-99); Mean Platelet Volume 8.2 fl (7.4-10.4); Monocytes # 0.3 K/mm3 (0.1-1.0); Monocytes % 4.3 % (1.7-9.3); Neutrophils # 5.4 K/mm3 (1.8-7.8); Neutrophils % 74.7 % (37.0-80.0); Platelet Count 184 K/mm3 (142-424); Red Blood Count 4.51 M/mm3 (4.20-5.40); Red Cell Distribution Width 14.7 % (11.5-17.5); White Blood Count 7.3 K/mm3 (4.8-10.8)
[2021-06-10 10:31] VITALS: BP 112/60; PULSE 80; O2SAT 95
[2021-06-10 12:00] VITALS: BP 105/61; PULSE 85; RESP 18; TEMP 36.9; O2SAT 98
--- NOTE | 2021-06-10 12:46 | PC.NURSE ---
Patient notified with positive COVID result
== END 2021-06-10 12:15 | disposition home or self-care (01) ==
PROVIDERS: Emergency Provider Emergency Medicine; PCP Family Medicine
DX: U07.1 COVID-19 (principal); J44.9 Chronic obstructive pulmonary disease, unspecified; E78.5 Hyperlipidemia, unspecified; E03.9 Hypothyroidism, unspecified; F17.210 Nicotine dependence, cigarettes, uncomplicated; Z79.899 Other long term (current) drug therapy
CPT/HCPCS: 71045; 80053; 85025; 99283; U0003

== ENCOUNTER → 2021-10-08 09:10 | Outpatient (CLI) | payer MEDICARE, BC, SELFPAY ==
--- NOTE | 2021-10-08 09:12 | XR_ITS ---
PROCEDURE: XR DEXA AXIAL SKELETON CLINICAL HISTORY: HORMONE REPLACEMENT THERAPY COMPARISON: No exams were available for comparison FINDINGS: The right hip BMD is 0.807 with a T-score of -1.1. The left hip BMD is 0.651 with a T-score of -2.4. The lumbar spine BMD is 1.044 with a T-score of 0.0. IMPRESSION: This patient is considered osteopenic according to the World Health Organization criteria. Bone density is between 10 and 25 percent below young normal. Fracture risk is moderate. Treatment is advised. Based on these results a follow-up exam is recommended in 2 year. Dictated by: Bruce Schultz MD 10/08/2021 11:02 Bruce Schultz MD in [place] 10/08/2021 11:02
== END ==
PROVIDERS: PCP Family Medicine; Visit Provider Family Medicine
DX: M85.89 Other specified disorders of bone density and structure, multiple sites (principal); Z79.890 Hormone replacement therapy
CPT/HCPCS: 77080

== ENCOUNTER → 2022-06-02 12:38 | Outpatient (CLI) | payer MEDICARE, BC, SELFPAY ==
--- NOTE | 2022-06-02 12:42 | MM_ITS ---
PROCEDURE INFORMATION: Exam: MG Bilateral Screening 3D Mammography Exam date and time: 06/02/2022 12:51 PM Age: 66 years old Clinical indication: Screening examination TECHNIQUE: Imaging protocol: Bilateral Screening tomosynthesis and 2D mammography including computer-aided detection (CAD) when performed. COMPARISON: 1. MG MM DIG SCREENING MAMM BI W/CAD 05/23/2021 12:59 PM 2. MG [facility]ELAND SCRN MAMMO W/CAD BILAT 04/27/2019 3:10 PM FINDINGS: MAMMOGRAPHY: Breast composition: There are scattered areas of fibroglandular density. Mass: None. Architectural distortion: None. Calcifications: No suspicious calcifications. Asymmetric density: None. Skin thickening: None. Axillary adenopathy: None. IMPRESSION: No mammographic evidence of malignancy. Annual screening is recommended unless otherwise clinically indicated. ASSESSMENT: BI-RADS Category 1: Negative
== END ==
PROVIDERS: PCP Family Medicine; Visit Provider Family Medicine
DX: Z12.31 Encounter for screening mammogram for malignant neoplasm of breast (principal)
CPT/HCPCS: 77063; 77067

== ENCOUNTER → 2023-06-03 12:34 | Outpatient (CLI) | payer MEDICARE, BC, SELFPAY ==
--- NOTE | 2023-06-03 12:39 | MM_ITS ---
PROCEDURE INFORMATION: Exam: MG Bilateral Screening 3D Mammography Exam date and time: 06/03/2023 12:41 PM Age: 67 years old Clinical indication: Screening examination TECHNIQUE: Imaging protocol: Bilateral Screening tomosynthesis and 2D mammography including computer-aided detection (CAD) when performed. COMPARISON: 1. MG MM DIG SCREENING MAMM BI W/CAD 06/02/2022 12:51 PM 2. MG MM DIG SCREENING MAMM BI W/CAD 05/23/2021 12:59 PM FINDINGS: MAMMOGRAPHY: Breast composition: There are scattered areas of fibroglandular density. Mass: None. Architectural distortion: None. Calcifications: No suspicious calcifications. Asymmetric density: None. Skin thickening: None. Axillary adenopathy: None. IMPRESSION: No mammographic evidence of malignancy. Annual screening is recommended unless otherwise clinically indicated. ASSESSMENT: BI-RADS Category 1: Negative
== END ==
PROVIDERS: PCP Family Medicine; Visit Provider Family Medicine
DX: Z12.31 Encounter for screening mammogram for malignant neoplasm of breast (principal)
CPT/HCPCS: 77063; 77067

== ENCOUNTER 2024-05-30 08:50 | Outpatient (CLI) | payer MEDICARE, BC, SELFPAY ==
--- NOTE | 2024-05-30 08:56 | XR_ITS ---
FINAL REPORT CLINICAL HISTORY: HORMONE REPLACEMENT THERAPY COMPARISON: 10/08/2021 FINDINGS: Using L1-4, the bone mineral density of the spine is 1.101 g/cm2, corresponding to T-score of 0.5 which is within normal limits. Previously was 1.044 with T-score of 0.0. Using the left hip, the bone mineral density of the femoral neck is 0.751 g/cm2, corresponding to a T-score of -1.6 which is consistent with osteopenia. Previously was 0.651 with T-score of -2.4. Using the right hip, the bone mineral density of the femoral neck is 0.770 g/cm2, corresponding to a T-score of -0.7 which is within normal limits. Previously was 0.807 with T-score of -1.1. FRAX 10 year fracture risk is 0.9% for a hip fracture and 8.0% for a major osteoporotic fracture. NOTE: T-score: Standard deviation compared with peak bone mass of young adult mean. *Following the recommendations of the International Society of Bone densitometry, classification of hip BMD is based on the lower of two T-scores; total hip or femoral neck. IMPRESSION: Diminished bone mineral density consistent with osteopenia with overall improved bone density. Reviewed, Interpreted and Dictated by Tian Lawler MD Transcribed by Anjana Salse Authenticated and [facility]
--- NOTE | 2024-05-30 08:58 | CT_ITS ---
FINAL REPORT TECHNIQUE: Axial CT images of the chest were obtained without contrast. Low-dose protocol was utilized. This study was performed with techniques to keep radiation doses as low as reasonably achievable (ALARA). Individualized dose reduction techniques using automated exposure control or adjustment of mA and/or kV according to the patient's size were employed. CLINICAL HISTORY: Z87.891 former smoker quit 6 years ago, 1ppd for 30 years hx copd hx cervical cancer COMPARISON: None FINDINGS: CT CHEST WITHOUT, LOW DOSE SCREENING CT Di Vol: 2.90 mGy DLP: 97.95 mGy*cm There is no axillary, mediastinal, or hilar adenopathy. The heart size is normal. There is no pleural or pericardial effusion. The lung windows show an oval nodule in the left lower lobe mid lung on image 43 measuring up to 3 mm. There is a 2 mm right lateral mid lung nodule on image 53. Limited images of the upper abdomen demonstrate no acute findings. IMPRESSION: Bilateral lung nodules as above. LR Category 2: 12 month follow-up low-dose chest CT is recommended. Reviewed, Interpreted and Dictated by Tian Lawler MD Transcribed by Anjana Sales Authenticated and [facility]
== END 2024-05-30 23:59 | disposition home or self-care (01) ==
LOC: RAD 08:50
PROVIDERS: PCP Family Medicine; Visit Provider Family Medicine
DX: Z87.891 Personal history of nicotine dependence; Z79.890 Hormone replacement therapy
CPT/HCPCS: 71271; 77080

== ENCOUNTER 2024-07-08 13:41 | Outpatient (CLI) | payer MEDICARE, BC, SELFPAY ==
--- NOTE | 2024-07-08 13:45 | MM_ITS ---
PROCEDURE INFORMATION: Exam: MG Bilateral Screening 3D Mammography Exam date and time: 07/08/2024 1:38 PM Age: 68 years old Clinical indication: Screening mammogram TECHNIQUE: Imaging protocol: Bilateral Screening tomosynthesis and 2D mammography including computer-aided detection (CAD) when performed. COMPARISON: 1. MG MM DIG SCREENING MAMM BI W/CAD 06/03/2023 12:41 PM 2. MG MM DIG SCREENING MAMM BI W/CAD 06/02/2022 12:51 PM 3. MG MM DIG SCREENING MAMM BI W/CAD 05/23/2021 12:59 PM 4. MG LELAND SCRN MAMMO W/CAD BILAT 04/27/2019 3:10 PM FINDINGS: MAMMOGRAPHY: Breast composition: There are scattered areas of fibroglandular density. Mass: None. Architectural distortion: No new or suspicious architectural distortion. Calcifications: No new or suspicious calcifications are present Asymmetric density: No new or suspicious asymmetric density is present Skin thickening: None. Axillary adenopathy: None. IMPRESSION: No mammographic evidence of malignancy. Recommend annual screening mammography unless otherwise clinically indicated. ASSESSMENT: BI-RADS category 1: Negative.
== END 2024-07-08 23:59 | disposition home or self-care (01) ==
LOC: RAD 13:41
PROVIDERS: PCP Family Medicine; Visit Provider Family Medicine
DX: Z12.31 Encounter for screening mammogram for malignant neoplasm of breast (principal)
CPT/HCPCS: 77063; 77067

== ENCOUNTER 2025-01-16 09:40 | Outpatient (POV) | payer MEDICARE, BC, SELFPAY ==
--- NOTE | 2025-01-16 09:45 | A.OFFVIS_ITS ---
HPI Data of Consult Patient: new to practice Consult date: 01/16/25 Requesting Physician: Thania Jackman APRN Primary Care Provider: Tian Singh MD Consult Narrative Reason for consult: Right shoulder pain History of present illness: Ms. Younger is a 69 year old female who presents today as a new patient. She is a self-referral that her is a patient of ours. She does rate her pain today a 6 out of 10. She states her pain is all related to her right shoulder. She describes it as a throbbing sensation with grabbing sensations into her upper arm. Patient does state that about 12 years ago she had worsening pain in that shoulder and did have an injection that took all the pain away. She denies any additional injections or other surgical intervention on this joint. Patient states that she has just noticed worsening pain over the last several weeks. Patient does state that she has trouble raising her arm up or extending it outward. 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 She states it is interfering with her ability to perform activities of daily living such as cooking and cleaning. Patient has tried oral medications, heat and ice and topicals with minimal relief. She does make mention that she is typically very sensitive to topicals. Patient is very active and states that she does exercise and stretch at home on a regular basis for longer than 12 weeks. She is interested in injection therapy. Her Emile has been reviewed and is appropriate. CC: Thania Jackman APRN [facility] Disclaimer: The information contained in this section may have been updated after the patient was seen, as this information can be updated by other users. Social History Smoking Status: Light tobacco smoker tobacco type: cigarettes packs per day: 1 second hand exposure: Yes alcohol intake: current alcohol intake frequency: holidays/special occasions only substance use type: denies use current occupational status: employed (self employed farming) Travel in the last 8 weeks: None household members: spouse housing: house current occupation: SELF current occupational exposures/hazards: No caffeine: Yes Review of Systems Review of Systems Review of systems:: pertinent systems reviewed and negative unless documented below Review of systems (narrative): Review of Systems: General: No recent weight changes, no fever, no sleep disturbances Respiratory: No cough, no shortness of air, no recurring pulmonary infections Cardiovascular/peripheral vascular: No chest pain, no palpitations, no edema, no shortness of breath Gastrointestinal: No new onset incontinence, normal bowel movements reported Genitourinary: No new onset incontinence Musculoskeletal: Right shoulder pain Psychiatric: [Normal mood/affect] Neurological: [Denies weakness in extremities], [denies balance issues] Meds Home Medications and Allergies Home Medications ?Medication ?Instructions ?Recorded ?Confirmed ?Type albuterol sulfate 90 mcg/actuation 90 mcg inhalation NEEDED PRN SOA 11/13/17 11/13/17 History aerosol inhaler (Ventolin HFA) aspirin 81 mg tablet,delayed 81 mg PO DAILY PREVENTATIVE 11/13/17 11/13/17 History release cholecalciferol (vitamin D3) 50 2,000 unit PO DAILY THYROID 11/13/17 11/13/17 History mcg (2,000 unit) capsule (Vitamin D3) conjugated estrogens 0.625 mg 0.625 mg PO DAILY HORMONE 11/13/17 11/13/17 History tablet (Premarin) REPLACEMENT pravastatin 40 mg tablet 40 mg PO DAILY High cholesterol 11/13/17 11/13/17 History (Pravachol) umeclidinium 62.5 mcg-vilanterol 1 puff inhalation BID Breathing 11/13/17 11/13/17 History 25 mcg/actuation powdr for problems inhalation (Anoro Ellipta) albuterol sulfate 2.5 mg/3 mL 2.5 mg (3 mL) inhalation QID PRN 03/19/18 Rx (0.083 %) solution for nebulization shortness of breath or wheezing #180 mL albuterol sulfate 2.5 mg/3 mL 2.5 mg (3 mL) IH Q4-6H #60 mg 06/10/21 Rx (0.083 %) solution for nebulization levothyroxine 88 mcg tablet See Rx Instructions .Route 07/14/23 Rx .COMPLEX #90 tabs New Prescriptions to Start Prescriptions: Allergies Allergy/AdvReac Type Severity Reaction Status Date / Time almond Allergy Severe Hives Verified 06/10/18 11:46 Penicillins Allergy Severe Swelling Verified 06/10/18 11:46 of Lip/Tongue/Throat Sulfa (Sulfonamide Allergy Severe Swelling Verified 06/10/18 11:46 Antibiotics) of Lip/Tongue/Throat tetanus and diphtheria Allergy Severe Unknown Verified 08/02/18 11:46 toxoids allergy reaction codeine Allergy Mild Hives Verified 06/10/18 11:46 meperidine (From Demerol) Allergy Mild Hives Verified 06/10/18 11:46 morphine Allergy Mild Hives Verified 06/10/18 11:46 Objective Narrative: Physical Exam: General: Alert and oriented x3, no acute distress, pleasant and cooperative Lungs: Respirations even and unlabored, symmetrical chest expansion Eyes: PERRL Musculoskeletal: Flexion and extension of right shoulder somewhat guarded secondary to pain, popping with extension Neurological: Speech clear, no gross sensory deficit Assessment and Plan *Assessment and plan (1) Chronic right shoulder pain: Status: Acute Category: Medical Code(s): M25.511 - Pain in right shoulder; G89.29 - Other chronic pain Plan Patient is experiencing worsening pain in her right shoulder with limited range of motion and popping with certain positions. I did discuss with the patient that I do believe she would benefit from a intra-articular shoulder injection. Risk and benefits were discussed with patient and she would like to proceed forward with this plan of care. Patient has had shoulder pain in the past approximately 12 years ago and had 1 injection that did take it completely away and has lasted up until the last several weeks. We will plan on scheduling the patient for a right intra-articular shoulder injection. This will be done without fluoroscopic or ultrasound guidance. Patient has tried and failed conservative therapy including oral medication, heat and ice, topicals, at home stretching exercise for longer than 12 weeks. Patient has been instructed to contact the clinic with any concerns before the next appointment. Dr. Burgos has reviewed this note and agrees with this plan of care. This note was dictated using voice recognition software and make contain errors or omissions. All injections are used with Lidocaine, Bupivacaine and Depo Medrol. Occasionally urine drug screen is needed to verify patient's compliance with our office pain contract. This is ordered based off specific treatments related to chronic pain with the potential to abuse certain medications.
[2025-01-16 10:14] VITALS: BP 130/59; PULSE 58; RESP 18; O2SAT 97; BMI 27.1
== END 2025-01-16 23:59 | disposition home or self-care (01) ==
LOC: SC.PAIN 09:42
PROVIDERS: PCP Family Medicine; Visit Provider Nurse Practitioner Family
DX: M25.511 Pain in right shoulder (principal); G89.29 Other chronic pain; Z73.89 Other problems related to life management difficulty; F17.210 Nicotine dependence, cigarettes, uncomplicated
CPT/HCPCS: 99202; G0463

== ENCOUNTER 2025-02-14 11:02 | Day surgery (SDC) | payer MEDICARE, BC, SELFPAY ==
[2025-02-14 11:06] VITALS: BP 143/68; PULSE 54; RESP 18; TEMP 36.6; O2SAT 100; BMI 27.1
[2025-02-14] MEDS: LIDOCAINE 1% 5ML PF VIAL 5 ML (11:23)
[2025-02-14] MEDS: BUPIVACAINE 0.25% 10ML INJ 25 MG IJ (11:23)
[2025-02-14] MEDS: methylPREDNISolone ACETATE 80MG/ML VIAL 80 MG (11:23)
[2025-02-14 11:24] VITALS: BP 125/81; PULSE 50; RESP 18; O2SAT 98
[2025-02-14 11:25] VITALS: BP 125/81; PULSE 50; RESP 18; O2SAT 98
[2025-02-14 11:40] VITALS: BP 143/65; PULSE 56; RESP 18; O2SAT 100
--- NOTE | 2025-02-14 12:32 | EXP.PAIN.PRO ---
Procedure Date: 02/14/25 Time: 11:00 Anesthesiologist:: Leo Wild CRNA Complications:: None Pre-procedure Diagnosis:: DJD right shoulder. Chronic right shoulder pain. Post-procedure Diagnosis:: Same. Indications for Procedure:: Patient very pleasant 69-year-old female who comes our clinic today for right intra-articular shoulder injection. Patient describes her right shoulder pain as dull, aching, intermittent. Patient has 5/5 strength in the right arm. However, limited range of motion secondary to right shoulder pain. She rates her pain 7/10. Procedure Details:: Procedure Details: Right shoulder intra-articular injection Informed consent was obtained risk and benefits of the procedure were explained to the patient. Patient was taken to the procedure room. The right shoulder was prepped using ChloraPrep. A 25-gauge needle was used posteriorly to inject 10 mL bupivacaine 0.25% and Depo-Medrol 40 mg. Patient tolerated procedure well with no complications. Plan and Disposition:: Patient discharged without incident.
== END 2025-02-14 11:40 | disposition home or self-care (01) ==
LOC: SC.PAINP 11:03
PROVIDERS: PCP Family Medicine; Visit Provider Nurse Anesthetist, Certified Registered
DX: M19.011 Primary osteoarthritis, right shoulder (principal); M25.511 Pain in right shoulder; G89.29 Other chronic pain
CPT/HCPCS: 20610; J1010

== ENCOUNTER 2025-02-28 13:48 | Outpatient (POV) | payer MEDICARE, BC, SELFPAY ==
--- OUTSIDE RECORDS SUMMARY | 2025-02-28 13:52 | XMS_ITS | Data Portability ---
Author Organization [facility] [place] [facility] Address [address] [place] [id number] Assessment No assessment recorded. Plan of Treatment Reminders Order Date Submit Date Provider Last Modified By Organization Details Last Modified Time Details Appointments None recorded. Lab None recorded. Referral None recorded. Procedures None recorded. Surgeries None recorded. Imaging LDCT, chest, for lung cancer screening 2021 023 [facility] (Centralized Scheduling), [address] , [place], [address], 3 09:25:17 Medication Orders None recorded. Patient TargetsNo targets recorded. Patient InstructionsNo instructions recorded. Reason for Referral None Reported. Problems Name Problem SNOMED Code Status Onset Date Resolution Date Notes Provider Name and Address Organization Details Recorded Time Pain in face 66771488 Active Maryam Wiliam coral, [facility] - [facility] - [place] & [place] 2 15:58:11 Nicotine dependence 47705664 Active Maryambrittni moncada, [facility] & [place] [facility] 2 15:58:11 Eczema of external auditory canal 55564958 Active Maryambrittni moncada, [facility] & [place] 2 15:58:11 Hypothyroidis m 44606034 Active Maryam moncada, [facility] & [place] 2 15:58:11 Pulmonary emphysema 65205091 Active Maryam moncada, [facility] & [place] 2 15:58:11 Lung mass 694177257 [facility] [place] 2 15:58:11 Dyspnea on exertion 89312137 Active 2021 Ahsan Dixon MD [address], [place], [address] , [facility] & [place] 2 13:24:58 Tobacco dependence in remission 915021738 Active 2021 Ahsan Dixon MD [address], [place], [address] , [facility] & [place] 2 13:25:13 Problem Notes None recorded. Procedures Surgical History Date Name Laterality Status Provider Name and Address Organization Details Recorded Time Remove tonsils and adenoids completed Maryam GONSALEZ [facility] & [place] 09/09/2022 16:02:[address] [facility] & [place] 09/09/2022 16:02:[address] [facility] & [place] 09/09/2022 16:02:50 Imaging Results None recorded. Procedure Notes None recorded. Medical Equipment None Reported. Allergies Allergen ID Allergen Name Allergen Category Reaction Reaction Severity Criticality Documentation Date Start Date Code Code System Note Provider Name and Address Organization Details Recorded Time 78924 morphine medicatio n Not available Not available Not available 09/09/2022 7052 RxNorm Maryam moncada [facility] & [place] 2 15:58:11 73226 codeine medicatio n Not available Not available Not available 09/09/2022 2670 RxNorm [facility] Swanson NT [facility] & [place] 2 15:58:11 36388 cefdinir medicatio n Not available Not available Not available 09/09/2022 82250 RxNorm [facility] Swanson NT [facility] & [place] 2 15:58:11 04872 meperidin e medicatio n Not available Not available Not available 09/09/2022 6754 [facility] & [place] 2 15:58:33 74306 Product containin g penicilli n (product) medicatio n Not available Not available Not available 09/09/2022 96931 8001 SNOMED [facility] Swanson [facility] & [place] 2 15:58:44 38208 Substance with sulfonami de structure and antibacte rial mechanism of action (substanc e) medicatio n Not available Not available Not available 09/09/2022 23531 8003 SNOMED [facility] Swanson [facility] & [place] 2 15:58:53 09817 Demerol medicatio n Not available Not available Not available 09/09/2022 42851 1 RxNorm [facility] Swanson [facility] & [place] 2 15:59:04 13077 tetanus immune globulin, human medicatio n Not available Not available Not available 09/09/2022 15990 RxNorm [facility] Swanson [facility] & [place] 2 15:59:17 17723 Shingrix medicatio n Not available Not available Not available 09/09/2022 20042 26 RxNorm [facility] Swanson [facility] & [place] 2 15:59:36 Medications Name Sig Start Date Stop Date Status Note LastModified by Organization Details LastModified Time furosemide 40 mg tablet 1 {tablet} by oral route. active Not Available Not Available No t Available allopurinol 100 mg tablet TAKE 1 TABLET BY MOUTH EVERY DAY active Not Available Not Available No t Available levothyroxin e 75 mcg tablet active Not Available Not Available Not Available levothyroxin e 88 mcg tablet TAKE 1 TABLET BY MOUTH EVERY DAY active Not Available Not Available No t Available aspirin 81 mg chewable tablet 1 {tablet} by oral route. 2015 active Not Available Not Available Not Avai lable albuterol sulfate HFA 90 mcg/actuatio n aerosol inhaler INHALE 2 PUFFS EVERY 6 HOURS NEEDED FOR 30 DAYS active Not Available Not Available No t Available Premarin 0.625 mg tablet TAKE 1 TABLET BY MOUTH EVERY DAY active Not Available Not Available No t Available rosuvastatin 20 mg tablet TAKE 1 TABLET BY MOUTH EVERY DAY active Not Available Not Available No t Available potassium alum (bulk) active Not Available Not Available Not Available Vitamin D3 active Not Available Not Av ailable Not Available Vitamin B12 active Not Available Not A vailable Not Available Breo Ellipta 100 mcg-25 mcg/dose powder for inhalation Inhale 1 puff every day by inhalation route for 30 days. 2022 active Not Available Not Available Not Avai lable Vitals Date Recorded Body weight Body mass index (BMI) Body height Body temperature Oxygen saturation Oxygen saturation in Arterial blood by Pulse oximetry Heart rate Systolic blood pressure Diastolic blood pressure Provider Name and Address Organization Details Last Updated DateTime 2 01466.1 5 g 30 kg/m2 157.48 cm 97.3 [degF] 100 % 100 % 65 /min 142 mm[Hg] 79 mm[Hg] Maryambrittni Swain [facility] & [place] 2 11:12:02 Social History Question Answer Notes LastModified by Organizat ion Details LastModified Time Tobacco Smoking Status Former Smoker Maryam moncada [facility] & [place] 09/09/2022 16:02:26 What Is Your Level Of Alcohol Consumption? None [email or web address] Information not available 09/09/2022 When Did You Quit Smoking? 1-5yearssin celastcigar ette 08/2018 [email or web address] Information not available 09/09/2022 What Is Your Current Pack Years? 30ormorepac kyears 1 PPD [email or web address] Information not available 09/09/2022 At What Age Did You Start Smoking Tobacco? 23 [email or web address] Information not available 09/09/2022 Do You Use Any Illicit Or Recreational Drugs? No [email or web address] Information not available 09/09/2022 How Many Years Have You Smoked Tobacco? 40 [email or web address] Information not available 09/09/2022 Sex: Unknown Functional Status None recorded. Mental Status None recorded. Family History Relationship Description Onset Age of this Age Resolved Age Notes LastModified by Organization Details LastModified Time Father Family member [email or web address] Not available 2021 16:01:16 Mother Family member [email or web address] Not available 2021 16:01:16 Medical History Condition Response Thyroid Disease Y COPD Y Gynecological HistoryNo gynecological history recorded. Obstetrics History GPAL:G 0 P 0 0 0 0 Past Encounters Encounter ID Performer Location Encounter Start Date Encounter Closed Date Diagnosis/Indication Diagnosis SNOMED-CT Code Diagnosis ICD10 Code Diagnosis Note [id number] Ahsan Dixon MD [facility] [address] [facility] [place] [address] 09/10/2022 11:04:04 09/10/2022 11:29:56 Pulmonary emphysema 64902108 J43.9 Spirometry done in the office today showed evidence of obstructio n with decrease in FEV1 down to 41% predicted and that was reviewed and discussed with the patient. Patient instructed to continue with the use of Breo daily and use her Donna on a p.r.n. basis. Patient to call if there is any new symptoms. Patient is up-to-date on her flu vaccine for this season. Dyspnea on exertion 6084 5006 R06.09 Patient recommende d to exercise as tolerated and use her Donna on a p.r.n. basis. Screening for malignant neoplasm of respiratory tract 018197963 Z12.2 The patient has participat ed in a shared decision making session during which potential risk and benefits of LDCT lung cancer screening were discussed. The patient was informed of the importance of adherence to annual screening, impact of comorbidit ies, the ability/wi llingness to undergo diagnosis and treatment. The patient was informed of the importance of smoking cessation and/or maintainin g smoking abstinence , including the offer of Medicare-c over tobacco cessation counseling services, if applicable . The patient is asymptomat ic (no symptoms such as fever, chest pain, new shortness of breath, new or changing cough, coughing up blood, or unexplaine d significan t weight loss). Tobacco de pendence in remission 164908423 F17.201 Patient quit smoking few years ago and will continue to monitor. Health Concerns Section Related Observation LastModified by Organization Detai ls LastModified Time None Recorded Concern Status LastModified by Organization Details LastModified Time None Recorded Advance Directives Directive None Recorded Payers Encounter Date Sequence Insurance Name Policy Number Policy Riley Covered Member ID Riley Member ID Guarantor Name 09/10/2022 1 [place] Sofya Younger [id number] Sofya Younger 09/10/2022 2 [place] [id number] Sofya Angel Aren [id number] Sofya Younger Notes Date Note Type Note Provider Name and Address Organization Details Recorded Time 09/10/2022 text/html Patient presents to the office today for follow-up visit. Patient states that he is doing fairly well respiratory ybarra without significant change compared to her baseline shortness of breath at rest or dyspnea exertion. She is using her controller regularly and Donna less than once a month. She denies fever, chills or diaphoresis. No chest pain, angina or palpitation. No PND or orthopnea. Patient denies wheezing or hemoptysis. Patient denies significant change in her weight or appetite. Ahsan Dixon MD [address], [place], [address], [facility] & [place] 09/10/2022 13:27:23 OBGyn Episode No OBEpisode recorded.
--- OUTSIDE RECORDS SUMMARY | 2025-02-28 13:52 | XMS_ITS ---
Author Organization Unknown TREATMENT PLAN [facility] Start Date Provider Encounter for Check-up [id number] [facility]
--- NOTE | 2025-02-28 14:01 | A.OFFVIS_ITS ---
[facility] Disclaimer: The information contained in this section may have been updated after the patient was seen, as this information can be updated by other users. Medical History Ankle fracture Hypothyroidism Hormone replacement therapy COPD (chronic obstructive pulmonary disease) HLD (hyperlipidemia) Cancer Surgical History History of partial hysterectomy History of appendectomy Hx of tonsillectomy Family History Other Cancer Thyroid disorder Social History Smoking Status: Light tobacco smoker tobacco type: cigarettes packs per day: 1 second hand exposure: Yes alcohol intake: current alcohol intake frequency: holidays/special occasions only substance use type: denies use current occupational status: employed Travel in the last 8 weeks: None household members: spouse housing: house current occupation: SELF current occupational exposures/hazards: No caffeine: Yes PM Subjective & Objective Subjective Subjective:: Patient is a pleasant 69-year-old female who presents today for follow-up of right intra-articular shoulder injection on 02/14/2025. Today she rates her pain a 0out of 10. She denies any new trauma or injury. Patient does state that she has had 100% improvement following this injection. Patient denies any other changes. Her Emile has been reviewed and is appropriate. Review of Systems: General: No recent weight changes, no fever, no sleep disturbances Respiratory: No cough, no shortness of air, no recurring pulmonary infections Cardiovascular/peripheral vascular: No chest pain, no palpitations, no edema, no shortness of breath Gastrointestinal: No new onset incontinence, normal bowel movements reported Genitourinary: No new onset incontinence Musculoskeletal: right shoulder pain Psychiatric: [Normal mood/affect] Neurological: [Denies weakness in extremities], [denies balance issues] Pain at rest (0-10 scale): 0 Objective Objective:: Physical Exam: General: Alert and oriented x3, no acute distress, pleasant and cooperative Lungs: Respirations even and unlabored, symmetrical chest expansion Eyes: PERRL Musculoskeletal: Flexion and extension of right shoulder within normal limits Neurological: Speech clear, no gross sensory deficit Has patient had previous pain injection?: Yes Percent improvement in pain since last injection: 100% Conservative treatment options previously tried: Home exercise plan Length of treatment: Longer than 12 weeks Meds Home Medications and Allergies Home Medications ?Medication ?Instructions ?Recorded ?Confirmed ?Type albuterol sulfate 90 mcg/actuation 90 mcg inhalation NEEDED PRN SOA 11/13/17 02/14/25 History aerosol inhaler (Ventolin HFA) aspirin 81 mg tablet,delayed 81 mg PO DAILY PREVENTATIVE 11/13/17 02/14/25 History release cholecalciferol (vitamin D3) 50 2,000 unit PO DAILY THYROID 11/13/17 02/14/25 History mcg (2,000 unit) capsule (Vitamin D3) conjugated estrogens 0.625 mg 0.625 mg PO DAILY HORMONE 11/13/17 02/14/25 History tablet (Premarin) REPLACEMENT pravastatin 40 mg tablet 40 mg PO DAILY High cholesterol 11/13/17 02/14/25 History (Pravachol) umeclidinium 62.5 mcg-vilanterol 1 puff inhalation BID Breathing 11/13/17 02/14/25 History 25 mcg/actuation powdr for problems inhalation (Anoro Ellipta) albuterol sulfate 2.5 mg/3 mL 2.5 mg (3 mL) inhalation QID PRN 03/19/18 02/14/25 Rx (0.083 %) solution for nebulization shortness of breath or wheezing #180 mL albuterol sulfate 2.5 mg/3 mL 2.5 mg (3 mL) IH Q4-6H #60 mg 06/10/21 02/14/25 Rx (0.083 %) solution for nebulization levothyroxine 88 mcg tablet See Rx Instructions .Route 07/14/23 02/14/25 Rx .COMPLEX #90 tabs New Prescriptions to Start Prescriptions: Allergies Allergy/AdvReac Type Severity Reaction Status Date / Time almond Allergy Severe Hives Verified 02/14/25 11:06 Penicillins Allergy Severe Swelling Verified 02/14/25 11:06 of Lip/Tongue/Throat Sulfa (Sulfonamide Allergy Severe Swelling Verified 02/14/25 11:06 Antibiotics) of Lip/Tongue/Throat tetanus and diphtheria Allergy Severe Unknown Verified 02/14/25 11:06 toxoids allergy reaction codeine Allergy Mild Hives Verified 02/14/25 11:06 meperidine (From Demerol) Allergy Mild Hives Verified 02/14/25 11:06 morphine Allergy Mild Hives Verified 02/14/25 11:06 Assessment and Plan *Assessment and plan (1) Chronic right shoulder pain: Status: Acute Category: Medical Code(s): M25.511 - Pain in right shoulder; G89.29 - Other chronic pain Plan Patient has had significant improvement following her intra-articular shoulder injection and does not require any additional injection therapy at this time. Patient will return to clinic in 6 weeks. Patient has been instructed to contact the clinic with any concerns before the next appointment. Dr. Burgos has reviewed this note and agrees with this plan of care. This note was dictated using voice recognition software and make contain errors or omissions. All injections are used with Lidocaine, Bupivacaine and dexamethasone. Occasionally urine drug screen is needed to verify patient's compliance with our office pain contract. This is ordered based off specific treatments related to chronic pain with the potential to abuse certain medications.
[2025-02-28 14:32] VITALS: BP 111/63; PULSE 53; RESP 14; O2SAT 100; BMI 27.1
== END 2025-02-28 23:59 | disposition home or self-care (01) ==
LOC: SC.PAIN 13:50
PROVIDERS: PCP Family Medicine; Visit Provider Nurse Practitioner Family
DX: M25.511 Pain in right shoulder (principal); G89.29 Other chronic pain; F17.210 Nicotine dependence, cigarettes, uncomplicated
CPT/HCPCS: 99212; G0463

== ENCOUNTER 2025-04-10 14:51 | Outpatient (POV) | payer MEDICARE, BC, SELFPAY ==
--- OUTSIDE RECORDS SUMMARY | 2025-04-10 14:57 | XMS_ITS | Data Portability ---
Author Organization [facility] [place] Address [address] [place] [id number] Assessment No assessment recorded. Plan of Treatment Reminders Order Date Submit Date Provider Last Modified By Organization Details Last Modified Time Details Appointments None recorded. Lab None recorded. Referral None recorded. Procedures None recorded. Surgeries None recorded. Imaging LDCT, chest, for lung cancer screening 2021 023 [facility] (Centralized Scheduling), [address] , [place], [address], 3 09:25:17 Medication Orders None recorded. Patient TargetsNo targets recorded. Patient InstructionsNo instructions recorded. Reason for Referral None Reported. Problems Name Problem SNOMED Code Status Onset Date Resolution Date Notes Provider Name and Address Organization Details Recorded Time Pain in face 25347370 Active Maryam Wiliam coral, [facility] - [facility] & [place] 2 15:58:11 Nicotine dependence 52494070 Active Maryambrittni moncada, [facility] - [facility] - [facility] & [place] 2 15:58:11 Eczema of external auditory canal 44650029 Active Maryambrittni moncada, [facility] & [place] 2 15:58:11 Hypothyroidis m 63823431 Active Maryam moncada, [facility] - [facility] - [facility] & [place] 2 15:58:11 Pulmonary emphysema 23873598 Active Maryam moncada, [facility] - [facility] - [facility] & [place] 2 15:58:11 Lung mass 352604548 [facility] [place] 2 15:58:11 Dyspnea on exertion 39609369 Active 2021 Ahsan Dixon MD [address], [place], [address] , [facility] & [place] 2 13:24:58 Tobacco dependence in remission 512307736 Active 2021 Ahsan Dixon MD [address], [place], [address] , [facility] & [place] 2 13:25:13 Problem Notes None recorded. Procedures Surgical History Date Name Laterality Status Provider Name and Address Organization Details Recorded Time Remove tonsils and adenoids completed Maryam GONSALEZ [facility] & [place] 09/09/2022 16:02:35 Appendectomy completed [facility] & [place] 09/09/2022 16:02:43 hysterectomy completed [facility] & [place] 09/09/2022 16:02:50 Imaging Results None recorded. Procedure Notes None recorded. Medical Equipment None Reported. Allergies Allergen ID Allergen Name Allergen Category Reaction Reaction Severity Criticality Documentation Date Start Date Code Code System Note Provider Name and Address Organization Details Recorded Time 37812 morphine medicatio n Not available Not available Not available 09/09/2022 7052 RxNorm Maryam moncada [facility] & [place] 2 15:58:11 55871 codeine medicatio n Not available Not available Not available 09/09/2022 2670 RxNorm [facility] Swanson NT [facility] & [place] 2 15:58:11 24797 cefdinir medicatio n Not available Not available Not available 09/09/2022 56455 RxNorm [facility] Swanson NT [facility] & [place] 2 15:58:11 01049 meperidin e medicatio n Not available Not available Not available 09/09/2022 6754 [facility] & [place] 2 15:58:33 91406 Product containin g penicilli n (product) medicatio n Not available Not available Not available 09/09/2022 65702 8001 SNOMED [facility] Swanson [facility] & [place] 2 15:58:44 21810 Substance with sulfonami de structure and antibacte rial mechanism of action (substanc e) medicatio n Not available Not available Not available 09/09/2022 93870 8003 SNOMED [facility] Swanson [facility] & [place] 2 15:58:53 04424 Demerol medicatio n Not available Not available Not available 09/09/2022 46879 1 RxNorm [facility] Swanson [facility] & [place] 2 15:59:04 95672 tetanus immune globulin, human medicatio n Not available Not available Not available 09/09/2022 36220 RxNorm [facility] Swanson [facility] & [place] 2 15:59:17 24773 Shingrix medicatio n Not available Not available Not available 09/09/2022 23459 26 RxNorm [facility] Swanson [facility] & [place] 2 15:59:36 Medications Name Sig Start Date [...] Address Organization Details Last Updated DateTime 2 58729.1 5 g 30 kg/m2 157.48 cm 97.3 [degF] 100 % 100 % 65 /min 142 mm[Hg] 79 mm[Hg] Maryam Swain [facility] & [place] 2 11:12:02 Social History Question Answer Notes LastModified by Organizat ion Details LastModified Time Tobacco Smoking Status Former Smoker Maryam moncada [facility] & [place] 09/09/2022 16:02:26 When Did You Quit Smoking? 1-5yearssinc elastcigaret te 08/2018 [email or web address] Information not available 09/09/2022 What Is Your Current Pack Years? 30ormorepack years 1 PPD [email or web address] Information not available 09/09/2022 At What Age Did You Start Smoking Tobacco? 23 [email or web address] Information not available 09/09/2022 How Many Years Have You Smoked Tobacco? 40 Information not available 09/09/2022 Sex: Unknown Functional Status Question Answer Note LastModified by Organizat ion Details LastModified Time Do you use any illicit or recreational drugs? No [email or web address] Information not available 09/09/2022 What is your level of alcohol consumption? None [email or web address] Information not available 09/09/2022 Mental Status None recorded. Family History Relationship Description Onset Age of this Age Resolved Age Notes LastModified by Organization Details LastModified Time Father Family member [email or web address] Not available 2021 16:01:16 Mother Family member [email or web address] Not available 2021 16:01:16 Medical History Condition Response Thyroid Disease Y COPD Y Gynecological HistoryNo gynecological history recorded. Obstetrics History GPAL:G 0 P 0 0 0 0 Past Encounters Encounter ID Performer Location Encounter Start Date Encounter Closed Date Diagnosis/Indication Diagnosis SNOMED-CT Code Diagnosis ICD10 Code Diagnosis Note [id number] Ahsan Dixon MD [facility] [address] [facility] [place] [address] 09/10/2022 11:04:04 09/10/2022 11:29:56 Pulmonary emphysema 33218552 J43.9 Spirometry done in the office today [...] Screening for malignant neoplasm of respiratory tract 642784829 Z12.2 The patient has participat ed in [...] weight loss). Tobacco de pendence in remission 383206831 F17.201 Patient quit smoking few years ago and will continue to monitor. Health Concerns Section Related Observation LastModified by Organization Detai ls LastModified Time None Recorded Concern Status LastModified by Organization Details LastModified Time None Recorded Advance Directives Directive None Recorded Payers Insurance Date Sequence Insurance Name Policy Number Policy Riley Covered Member ID Riley Member ID Guarantor Name 09/09/2022 1 [place] Sofya Younger [id number] Sofya Younger 09/09/2022 2 [place]MEDICARE [place]PPLEMENT[place] [id number] Sofya Younger [id number] Sofya Younger Notes Date Note Type [...] her weight or appetite. Ahsan Dixon MD [address] [facility], [place], [address], [facility] & [place] 09/10/2022 13:27:23 OBGyn Episode No OBEpisode recorded.
[2025-04-10 15:13] VITALS: BP 116/57; PULSE 58; RESP 12; O2SAT 99; BMI 27.1
--- NOTE | 2025-04-10 16:02 | A.OFFVIS_ITS ---
[facility] Disclaimer: The information contained in this section may have been updated after the patient was seen, as this information can be updated by other users. Medical History (Updated 04/10/25 @ 16:04 by Thania Jackman APRN) Ankle fracture Hypothyroidism Hormone replacement therapy COPD (chronic obstructive pulmonary disease) HLD (hyperlipidemia) Cancer Surgical History History of partial hysterectomy History of appendectomy Hx of tonsillectomy Family History Other Cancer Thyroid disorder Social History Smoking Status: Light tobacco smoker tobacco type: cigarettes packs per day: 1 second hand exposure: Yes alcohol intake: current alcohol intake frequency: holidays/special occasions only substance use type: denies use current occupational status: other Travel in the last 8 weeks?: None household members: spouse housing: house current occupation: SELF current occupational exposures/hazards: No caffeine: Yes PM Subjective & Objective Subjective Subjective:: Patient is a pleasant 69-year-old female who presents today for follow-up. Today she rates her pain a 0 out of 10 in her right shoulder however does rates an 8 or a 9 out of 10 in her low back and right hip. Patient states that she has had these low back issues for years however over the last year it has in creased in frequency. Patient states it generally will ease down at different times however this has been ongoing straight for 2 full weeks. She describes it as a constant aching, throbbing sensation with some numbness in her upper thigh. Patient denies any radiating symptoms down into her lower legs. Patient does state that the mornings are really bad and it is interfering with her ability to perform activities of daily living such as cooking and cleaning. Patient is interested if there is something that we can do for this pain as she has had such good success with the shoulder pain. Patient has tried oral medications along with heat and ice and topicals such as Salonpas and the compounded cream with minimal changes. Her Emile has been reviewed and is appropriate. Review of Systems: General: No recent weight changes, no fever, no sleep disturbances Respiratory: No cough, no shortness of air, no recurring pulmonary infections Cardiovascular/peripheral vascular: No chest pain, no palpitations, no edema, no shortness of breath Gastrointestinal: No new onset incontinence, normal bowel movements reported Genitourinary: No new onset incontinence Musculoskeletal: Low back pain, right hip pain Psychiatric: [Normal mood/affect] Neurological: [Denies weakness in extremities], [denies balance issues] Pain at rest (0-10 scale): 8 Objective Objective:: Physical Exam: General: Alert and oriented x3, no acute distress, pleasant and cooperative Lungs: Respirations even and unlabored, symmetrical chest expansion Eyes: PERRL Musculoskeletal: Flexion and extension of lumbar [spine] somewhat guarded secondary to pain, [antalgic gait noted] point tenderness along right SI and right greater trochanteric bursa with positive right George's, Codi's, Gaenslen's, compression and distraction exam Neurological: Speech clear, no gross sensory deficit Has patient had previous pain injection?: No Conservative treatment options previously tried: Home exercise plan Length of treatment: Longer than 12 weeks Meds Home Medications and Allergies Home Medications ?Medication ?Instructions ?Recorded ?Confirmed ?Type albuterol sulfate 90 mcg/actuation 90 mcg inhalation A S NEEDED PRN SOA 11/13/17 04/10/25 History aerosol inhaler (Ventolin HFA) aspirin 81 mg tablet,delayed 81 mg PO DAILY PREVENTATI VE 11/13/17 04/10/25 History release cholecalciferol (vitamin D3) 50 2,000 unit PO DAILY TH YROID 11/13/17 04/10/25 History mcg (2,000 unit) capsule (Vitamin D3) conjugated estrogens 0.625 mg 0.625 mg PO DAILY HORMON E 11/13/17 04/10/25 History tablet (Premarin) REPLACEMENT pravastatin 40 mg tablet 40 mg PO DAILY High choleste rol 11/13/17 04/10/25 History (Pravachol) umeclidinium 62.5 mcg-vilanterol 1 puff inhalation BID Breathing 11/13/17 04/10/25 History 25 mcg/actuation powdr for problems inhalation (Anoro Ellipta) albuterol sulfate 2.5 mg/3 mL 2.5 mg (3 mL) inhalation QID PRN 03/19/18 04/10/25 Rx (0.083 %) solution for nebulization shortness of breat h or wheezing #180 mL albuterol sulfate 2.5 mg/3 mL 2.5 mg (3 mL) IH Q4-6H # 60 mg 06/10/21 04/10/25 Rx (0.083 %) solution for nebulization levothyroxine 88 mcg tablet See Rx Instructions .Route 07/14/23 04/10/25 Rx .COMPLEX #90 tabs New Prescriptions to Start Prescriptions: Allergies Allergy/AdvReac Type Severity Reaction Status Date / Time almond Allergy Severe Hives Verified 02/14/25 11:06 Penicillins Allergy Severe Swelling Verified 02/14/25 11:06 of Lip/Tongue/Throat Sulfa (Sulfonamide Allergy Severe Swelling Verified 02/14/25 11:06 Antibiotics) of Lip/Tongue/Throat tetanus and diphtheria Allergy Severe Unknown Verified 02/14/25 11:06 toxoids allergy reaction codeine Allergy Mild Hives Verified 02/14/25 11:06 meperidine (From Demerol) Allergy Mild Hives Verified 02/14/25 11:06 morphine Allergy Mild Hives Verified 02/14/25 11:06 Assessment and Plan *Assessment and plan (1) Sacroiliitis: Status: Acute Category: Medical Code(s): M46.1 - Sacroiliitis, not elsewhere classified (2) Greater trochanteric bursitis of right hip: Status: Acute Category: Medical Code(s): M70.61 - Trochanteric bursitis, right hip Plan Patient is experiencing worsening pain along her low back and right hip with limited range of motion. Patient did have point tenderness along her right SI and right greater trochanteric bursa during today's exam. I did discuss with patient that I do believe she would benefit from a right SI and right greater trochanteric bursa injection. Risk and benefits were discussed with the patient and she would like to proceed forward with this plan of care. Patient has had this pain for longer than a year unrelieved with conservative measures such as oral medication, heat and ice, topicals, at home stretching exercise for longer than 12 weeks. Patient has not had any of these injections in the past. I did discuss with the patient if she does get significant relief with the right SI injection that she may be a potential candidate of a right SI fusion in future. We will follow-up with this in later appointments. Patient will have a diagnostic SI injection with less than 1 mL of solution to be injected. Patient will be scheduled for a right SI and right bursa injection under fluoroscopy. Patient has been instructed to contact the clinic with any concerns before the next appointment. Dr. Burgos has reviewed this note and agrees with this plan of care. This note was dictated using voice recognition software and make contain errors or omissions. All injections are used with Lidocaine, Bupivacaine and dexamethasone. Occasionally urine drug screen is needed to verify patient's compliance with our office pain contract. This is ordered based off specific treatments related to chronic pain with the potential to abuse certain medications.
== END 2025-04-10 23:59 | disposition home or self-care (01) ==
LOC: SC.PAIN 14:55
PROVIDERS: PCP Family Medicine; Visit Provider Nurse Practitioner Family
DX: M46.1 Sacroiliitis, not elsewhere classified (principal); M70.61 Trochanteric bursitis, right hip
CPT/HCPCS: 99212; G0463

== ENCOUNTER 2025-05-02 09:06 | Day surgery (SDC) | payer MEDICARE, BC, SELFPAY ==
[2025-05-02 09:22] VITALS: BP 150/77; PULSE 58; RESP 18; O2SAT 99; BMI 27.1
[2025-05-02] MEDS: BUPIVACAINE 0.25% 10ML INJ 25 MG IJ (09:28)
[2025-05-02 09:29] VITALS: BP 137/78; PULSE 55; RESP 18; O2SAT 99
[2025-05-02] MEDS: LIDOCAINE 1% 5ML PF VIAL 5 ML (09:29)
[2025-05-02] MEDS: DEXAMETHASONE 10MG/ML 1ML VIAL 10 MG (09:29)
[2025-05-02 09:30] VITALS: BP 137/78; PULSE 51; RESP 18; O2SAT 99
--- NOTE | 2025-05-02 09:36 | P.PCN_ITS ---
Procedure Date: 05/02/25 Time: 09:20 Anesthesiologist:: Leo Wild CRNA Complications:: None Pre-procedure Diagnosis:: Right trochanteric bursitis. Right sacroiliitis. Post-procedure Diagnosis:: Same. Indications for Procedure:: Patient is a very pleasant 69-year-old female who comes our clinic today for right sacroiliac joint injection of local anesthetic for diagnostic purposes. Also, right trochanteric bursa injection of cortisone and local anesthetic. She describes low lumbar back pain off the midline to the right as well as right posterior hip pain. Also, right lateral hip pain. Upon examination she has extreme point tenderness over the right sacroiliac joint as well as the right trochanteric bursa area. She rates her pain 7/10. Procedure Details:: Procedure: Right sacroliliac joint injection under fluoroscopy Informed consent was obtained and the risk and benefits of the procedure were explained to the patient.~ The patient was taken to the procedure room and noninvasive monitors were placed including noninvasive blood pressure cuff and pulse oximeter.~ The patient was placed prone on the procedure table.~ The~ right hip was cleansed using Betadine as a cleansing solution.~ C-arm fluorosocpy was used to view the right SI joint.~ The skin and subcutaneous tissues were anesthetized using Lidocaine 1.5% and a 25-gauge needle.~ After this, a 22-gauge spinal needle was inserted under fluoroscopic guidance into the inferior aspect of the right SI joint.~ Omnipaque dye was injected and a good spread was seen throughout the joint.~ After this, approximately 5 mL of bupivacaine 0.25% was incrementally injected into the sacroiliac joint.~ The patient tolerated the procedure well with no complications.~ The patient was observed in the Pain Clinic, then discharged home neurologically intact.~ Procedure: Right trochanteric bursa injection under fluoroscopy We then moved to the right trochanteric bursa.~ C-arm fluoroscopy was used to view the left greater trochanter.~ The skin and subcutaneous tissues overlying the right greater trochanter were anesthetized using lidocaine, 1.5% and a 25- gauge needle.~ After this, a 22-gauge spinal needle was inserted and advanced until it contacted the right greater trochanter.~ Dye was injected and good spread was seen throughout the right trochanteric bursa. After this, approximately 5 mL of bupivacaine, 0.25% and Depo-Medrol, 40 mg was incrementally injected into the right right trochanteric bursa.~ The patient tolerated the procedure well with no complications. Plan and Disposition:: Patient was discharged without incident.
[2025-05-02 09:45] VITALS: BP 126/56; PULSE 48; RESP 16; O2SAT 99
== END 2025-05-02 09:45 | disposition home or self-care (01) ==
PROVIDERS: PCP Family Medicine; Visit Provider Nurse Anesthetist, Certified Registered
DX: M70.61 Trochanteric bursitis, right hip (principal); M46.1 Sacroiliitis, not elsewhere classified; J44.9 Chronic obstructive pulmonary disease, unspecified; E78.5 Hyperlipidemia, unspecified; E03.9 Hypothyroidism, unspecified; Z88.5 Allergy status to narcotic agent; Z91.018 Allergy to other foods; Z88.0 Allergy status to penicillin; Z88.2 Allergy status to sulfonamides; Z91.09 Other allergy status, other than to drugs and biological substances; Z79.82 Long term (current) use of aspirin; Z79.899 Other long term (current) drug therapy
CPT/HCPCS: 27096; J0665; J1100; J2003

== ENCOUNTER 2025-06-05 08:41 | Outpatient (POV) | payer MEDICARE, BC, SELFPAY ==
--- OUTSIDE RECORDS SUMMARY | 2025-02-20 06:45 | XMS_ITS ---
Author Organization [facility] Address [address] [id number] Care Team Providers Care Cytology Laboratory Manager Name Role Phone Abimael Singh Primary Care Provider Erik Chen Unavailable [phone] Allergies Allergen (clinical drug ingredient) Drug/Non Drug Allergy documented on EMR Reaction Allergy Type Onset Date Status almond allergenic extract [place] (Diagnostic) hives Drug Allergy Active cefdinir Cefdinir hives Drug Allergy Active meperidine Demerol hives Drug Allergy Active Sulfamethoxazole hives Drug Allergy Active codeine Codeine vomiting Drug Allergy Active morphine Morphine hives Drug Allergy Active Penicillin hives Drug Allergy Active Tetanus Toxoids nausea, swelling in arms Drug Allergy Active Results Component Value Reference Range Notes CBC Venipuncture (in house) Reviewed date:02/22/2025 09:28:25 AM Interpretation:wbc 13.6, rbc 5.13, hgb 16.6 Performing Lab: Notes/Report: wbc 13.6, rbc 5.13, hgb 16.6 wbc 13.6 3.5 - 10 lymph 24.3% 15 - 50 mid 5.2% 2 - 15 gran 70.5% 35 - 80 rbc 5.13 3.5 - 5.5 hgb 16.6 11.5 - 16.5 hct 47.7 35 - 55 mcv 93.0 75 - 100 mch 32.3 25 - 35 mchc 34.8 31 - 38 platlet 291 100 - 400 P-Vitamin B12 Reviewed date:02/22/2025 09:28:25 AM Interpretation:>2000 Performing Lab: Notes/Report: Test performed by [facility] [address] [place] [address] , [address], [place] [address] Alex Escamilla MD, Collections Clerk CLIA: [id number] Vitamin B12 >2000 232-1245 pg/mL P-Comprehensive Metabolic Pa ben (CMP) Reviewed date:02/22/2025 09:28:25 AM Interpretation:wiliam 10.5 Performing Lab: Notes/Report: Test performed by [facility] [address] [place] [address] , [address], [place] [address] Alex Escamilla MD, Collections Clerk CLIA: [id number] Sodium 140 135-145 mmol/L Potassium 4.8 3.5-5.3 mmol/L Chloride 97 97-108 mmol/L CO2 29 22-32 mmol/L Glucose 88 65-99 mg/dL BUN 18 8-23 mg/dL Creatinine 0.93 0.50-1.00 mg/dL Calcium 10.5 8.6-10.4 mg/dL eGFR by Creatinine 66 >59 mL/min/1.73m2 Protein 7.6 6.0-8.3 g/dL Albumin 4.6 3.5-5.3 g/dL Alkaline Phosphatase 87 35-121 IU/L ALT (SGPT) 17 <5-47 IU/L AST (SGOT) 18 <5-40 IU/L Bilirubin, Total 0.3 <0.2-1.2 mg/dL A/G Ratio 1.5 1.1-2.5 P-T4 Free (thyroxine) Reviewed date:02/22/2025 09:28:25 AM Interpretation:Normal Performing Lab: Notes/Report: Test performed by [facility] [address] [place] [address] , [place] [address] Alex Escamilla MD, Collections Clerk CLIA: [id number] Thyroxine Free (free T4) 1.71 0.86-1.76 ng/dL P-Lipid Panel Reviewed date:02/22/2025 09:28:25 AM Interpretation:trigs 206 Performing Lab: Notes/Report: Test performed by [facility] [address] [place] [address] , [place] [address] Alex Escamilla MD, Collections Clerk CLIA: [id number] Cholesterol 189 <200 mg/dL Triglycerides 206 <150 mg/dL HDL Cholesterol 102 >39 mg/dL Cholesterol / HDL Ratio 1.85 0.00-4.44 Ratio Non-HDL Cholesterol 87 <130 mg/dL LDL Cholesterol (Calculation) 46 <130 mg/dL LDL Cholesterol Levels* Less than 100 mg/dL Optimal 100 to 129 mg/dL Near Optimal/ Above Optimal 130 to 159 mg/dL Borderline High 160 to 189 mg/dL High 190 mg/dL and above Very High * Categories as recommended by the 2004 ATPIII guidelines LDL/HDL Ratio 0.4 <3.3 Ratio LDL Cholesterol Patient History Test Date: 11/30/2023 LDL Results: 47 Units: mg/dL % Change: - Test Date: 02/20/2025 LDL Results: 46 Units: mg/dL % Change: -2% P-TSH Reviewed date:02/22/2025 09:28:25 AM Interpretation:Normal Performing Lab: Notes/Report: Test performed by [facility] [address] [place] [address] , [address], [place] [address] Alex Escamilla MD, Collections Clerk CLIA: [id number] TSH 0.98 0.43-5.25 mU/L P-Microalbumin/Creatinine, R andom Urine Sample Reviewed date:02/22/2025 09:28:25 AM Interpretation:Normal Performing Lab: Notes/Report: Test performed by [facility], [address] , [address], [place] [address] Alex Escamilla MD, Collections Clerk CLIA: [id number] Albumin/Creatinine Ratio, Urine 6 0-30 ug/m g Microalbumin, Urine, Random 0.7 Creatinine, Urine 125.3 P-Uric Acid Reviewed date:02/22/2025 09:28:25 AM Interpretation:Normal Performing Lab: Notes/Report: Test performed by [facility] [address] , [address], [place] [address] Alex Escamilla MD, Collections Clerk CLIA: [id number] Uric Acid 4.5 2.4-7.0 mg/dL REASON FOR VISIT poss BP is high Medications Medication SIG (Take, Route, Frequency, Duration) Notes Start Date End Date Status Estradiol 1 MG 1 tablet Orally Once a day; Duration: 90 days 02/13/2025 Active Breo Ellipta 100-25 MCG/ACT INHALE 1 PUF F BY MOUTH EVERY DAY; Duration: 30 days Active Levothyroxine Sodium 88 MCG TAKE 1 TABLE T BY MOUTH EVERY DAY; Duration: 90 Active Allopurinol 100 MG TAKE 1 TABLET BY MAGNOLIA TH EVERY DAY; Duration: 90 Active Rosuvastatin Calcium 20 MG 1 tab(s) oral ly once a day; Duration: 90 days Active CoQ-10 100 MG 2 cap(s) orally once a day 06/18/2020 Active Vitamin D3 50 MCG (2000 UT) as directed orally once a day; Duration: 30 day(s) Active Ventolin HFA 108 (90 Base) MCG/ACT 2 puff(s) inhaled every 6 hours as needed Active Lisinopril 10 MG 1 tablet Orally Once a day 02/20/2025 Active Metoprolol Succinate ER 25 MG 1 tablet Orally Once a day Active Vitamin B-12 1000 MCG 1 tab(s) orally on ce a day; Duration: 30 day(s) 07/02/2020 Active Vital Signs Blood pressure systolic 158 mm Hg 02/21/20 25 Blood pressure diastolic 90 mm Hg 025 Heart Rate 76 /min 02/20/2025 Height 61.50 in 02/20/2025 Weight 153.6 lbs 02/20/2025 BMI 28.55 kg/m2 02/20/2025 Encounters Encounter Location Date Provider Diagnosis [facility] [address] [facility] [address] [facility] [address] [place], [place] [id number] 02/20/2025 Erik Chen Essential hypertensi on I10 ; Hyperlipidemia, unspecified hyperlipidemia type E78.5 ; Hypothyroidism (acquired) E03.9 ; Hyperuricemia E79.0 ; Vitamin B12 deficiency E53.8 and BMI 28.0-28.9,adult Z68.28 Assessments Encounter Date Diagnosis (ICD Code) Assessment Notes Treatment Notes Treatment Clinical Notes Section Notes 02/20/2025 Essential hypertension (ICD-10 - I10) 02/20/2025 Hyperlipidemia, unspecified hyperlipidemia type (ICD-10 - E78.5) 02/20/2025 Hypothyroidism (acquired) (ICD-10 - E03.9) 02/20/2025 Hyperuricemia (ICD-10 - E79.0) 02/20/2025 Vitamin B12 deficiency (ICD-10 - E53.8) 02/20/2025 BMI 28.0-28.9,adult (ICD-10 - Z68.28) Plan Of Treatment Medication Medication Name Sig Start Date Stop Date Notes Lisinopril 10 MG 1 tablet Orally Once a day 02/20/2025 Metoprolol Succinate ER 25 MG 1 tablet Orally Once a day Next Appt Details Follow Up: 3 Weeks, Reason: Provider Name:Abimael Betancourt er, 09/11/2025 10:45:00 AM, [address] [facility] [address] [facility], [address], [place], [id number], Progress Notes * JEFRY AUSTINOB:1955 (69 yo F)Acc No.[id number]:02/20/2025 Progress Notes Patient: RISHABH BRUNO Provider: Celestino Chen M.D. DOB:1955 A ge:69 Y S ex:Female Date:02/20/2025 Address:[address] [place] [address], [place] [id number] Pcp:Abimael Singh Subjective: * Chief Complaints: * 1 . poss BP is high. * HPI: C ardiology: 69 year old female presents with c/o Blood Pressure Elevated?Pt complains of elevated bp at home for a couple weeks. Pt states she has felt awful . Pt complains of feeling shaky, head feels funny and having no energy. Pt states she does have bp log with her today. * ROS: D ERMATOLOGY: no R dayanna. n o H ana m. G ASTROENTEROLOGY: no N ausea. n o V omiting. U ROLOGY: no D ifficulty urinating. n o B lood in urine. * Medical History: C OPD, Hyperlipidemia, Hypothyroidism, Shingrix 08/2020, COVID 19 Vaccine Pfizer Dec/Jan 2021, COVID 19 Booster 08/12 Pfizer, COVID 19 Booster, Moderna 02/10/2022, Cologuard Negative 2023, 08/2024 Flu, 08/2024 COVID BOOSTER. * Surgical History: t onsillectomy 1958, appendectomy 1962, hysterectomy vaginal 1980, Heart Cath 12/23/2018, colonoscopy, [facility] 2018, RT Shoulder Steroid Inhection 02/26/2025. * Hospitalization/Major Diagno stic Procedure: D enies Past Hospitalization. * Family History: F ather: , diagnosed with Cancer. M other: , diagnosed with Cancer. 1 sister(s) . 1 son(s) - healthy. . Sister with breast, thyroid, and esophageal cancer. * Social History: C URRENT TOBACCO USE: No . C affeine: yes, frequency:. Home smoke detector use: yes. Marital Status: . Alcohol: yes. * Medications: T aking Vitamin B-12 1000 MCG Tablet 1 tab(s) orally once a day , Taking Vitamin D3 50 MCG (2000 UT) Tablet as directed orally once a day , Taking CoQ-10 100 MG Capsule 2 cap(s) orally once a day , Taking Ventolin HFA 108 (90 Base) MCG/ACT Aerosol Solution 2 puff(s) inhaled every 6 hours as needed , Taking Metoprolol Succinate ER 25 MG Tablet Extended Release 24 Hour 1/2 tablet Orally Once a day , Taking Rosuvastatin Calcium 20 MG Tablet 1 tab(s) orally once a day , Taking Allopurinol 100 MG Tablet TAKE 1 TABLET BY MOUTH EVERY DAY , Taking Levothyroxine Sodium 88 MCG Tablet TAKE 1 TABLET BY MOUTH EVERY DAY , Taking Breo Ellipta 100-25 MCG/ACT Aerosol Powder Breath Activated INHALE 1 PUFF BY MOUTH EVERY DAY , Taking Estradiol 1 MG Tablet 1 tablet Orally Once a day , Medication List reviewed and reconciled with the patient * Allergies: P enicillin: hives, Sulfamethoxazole: hives, Cefdinir: hives, Morphine: hives, Demerol: hives, Codeine: vomiting, Tetanus Toxoids: nausea, swelling in arms, [place] (Diagnostic): hives. Objective: * Vitals: W t: 153.6, Temp: 98.0, BP: 158/90, HR: 76, Nurse: mateo, Ht: 61.50, BMI:28.55. * Examination: C ardiology: General Appearance: p leasant, NAD. H eart sounds: R RR, normal S1, S2. L ungs: c lear, no rales or wheezes. E xtremities: n o leg edema. P eripheral pulses: 2 plus bilateral. Assessment: * Assessment: 1. E ssential hypertension - I10 (Primary) 2 . H yperlipidemia, unspecified hyperlipidemia type - E78.5 3 . H ypothyroidism (acquired) - E03.9 ?4. H yperuricemia - E79.0 5 . V itamin B12 deficiency - E53.8 & #160; 6 . B AR 28.0-28.9,adult - Z68.28 Plan: * Treatment: Value Reference Range A /G Ratio 1.5 1.1-2.5 - * A lbumin 4.6 3.5-5.3 - g/dL * A lkaline Phosphatase 87 35-121 - IU/L * A LT (SGPT) 17 <5-47 - IU/L * A ST (SGOT) 18 <5-40 - IU/L * B ilirubin, Total 0.3 <0.2-1.2 - mg/dL * B UN 18 8-23 - mg/dL * C alcium 10.5 H 8.6-10.4 - mg/dL * C hloride 97 97-108 - mmol/L * C O2 29 22-32 - mmol/L * C reatinine 0.93 0.50-1.00 - mg/dL * G lucose 88 65-99 - mg/dL * P otassium 4.8 3.5-5.3 - mmol/L * S odium 140 135-145 - mmol/L * P rotein 7.6 6.0-8.3 - g/dL * e GFR by Creatinine 66 >59 - mL/min/1.73m2 * Latosha Knox 02/22/2025 09: 28:15 AM > See phone encounter ?LAB: P-Microalbumin/Creatinine, Random Urine Sample (Collection Date & Time - 02/20/2025 10:29 AM)?Normal* Value Reference Range A lbumin/Creatinine Ratio, Urine 6 0-30 - ug /mg * C reatinine, Urine 125.3 - mg/dL * M icroalbumin, Urine, Random 0.7 - mg/dL * Latosha Knox 02/22/2025 09: 28:15 AM > See phone encounter ?LAB: CBC Venipuncture (in house) (Collection Date & Time - 02/20/2025)?wbc 13.6, rbc 5.13, hgb 16.6* Value Reference Range w bc 13.6 3.5 - 10 * l ymph 24.3% 15 - 50 * m id 5.2% 2 - 15 * g ran 70.5% 35 - 80 * r bc 5.13 3.5 - 5.5 * h gb 16.6 11.5 - 16.5 * h ct 47.7 35 - 55 * m cv 93.0 75 - 100 * m ch 32.3 25 - 35 * m chc 34.8 31 - 38 * p latlet 291 100 - 400 * Melody Heart 02/20/2025 12:28: 03 PM > Latosha Knox 02/22/2025 09:28:15 AM > See phone encounter 2.?Hyperlipidemia, unspecified hyperlipidemia type?LAB: P-Comprehensive Metabolic Panel (CMP) (Collection Date & Time - 02/20/2025 10:29 AM)?wiliam 10.5* Value Reference Range A /G Ratio 1.5 1.1-2.5 - * A lbumin 4.6 3.5-5.3 - g/dL * A lkaline Phosphatase 87 35-121 - IU/L * A LT (SGPT) 17 <5-47 - IU/L * A ST (SGOT) 18 <5-40 - IU/L * B ilirubin, Total 0.3 <0.2-1.2 - mg/dL * B UN 18 8-23 - mg/dL * C alcium 10.5 H 8.6-10.4 - mg/dL * C hloride 97 97-108 - mmol/L * C O2 29 22-32 - mmol/L * C reatinine 0.93 0.50-1.00 - mg/dL * G lucose 88 65-99 - mg/dL * P otassium 4.8 3.5-5.3 - mmol/L * S odium 140 135-145 - mmol/L * P rotein 7.6 6.0-8.3 - g/dL * e GFR by Creatinine 66 >59 - mL/min/1.73m2 * Latosha Knox 02/22/2025 09: 28:15 AM > See phone encounter ?LAB: P-Lipid Panel (Collection Date & Time - 02/20/2025 10:29 AM)?trigs 206 * Value Reference Range C holesterol / HDL Ratio 1.85 0.00-4.44 - Ratio * C holesterol 189 <200 - mg/dL * H DL Cholesterol 102 >39 - mg/dL * L DL Cholesterol (Calculation) 46 <130 - mg/d L * L DL/HDL Ratio 0.4 <3.3 - Ratio * N on-HDL Cholesterol 87 <130 - mg/dL * T riglycerides 206 H <150 - mg/dL * Latosha Knox 02/22/2025 09: 28:15 AM > See phone encounter 3.?Hypothyroidism (acquired)?LAB: P-T4 Free (thyroxine) (Collection Date & Time - 02/20/2025 10:29 AM)? Normal* Value Reference Range T hyroxine Free (free T4) 1.71 0.86-1.76 - ng/d L * Latosha Knox 02/22/2025 09: 28:15 AM > See phone encounter ?LAB: P-TSH (Collection Date & Time - 02/20/2025 10:29 AM)?Normal* Value Reference Range T SH 0.98 0.43-5.25 - mU/L * Latosha Knox 02/22/2025 09: 28:15 AM > See phone encounter 4.?Hyperuricemia?LAB: P-Uric Acid (Collection Date & Time - 02/20/2025 10:29 AM)?Normal* Value Reference Range U jessica Acid 4.5 2.4-7.0 - mg/dL * Latosha Knox 02/22/2025 09: 28:15 AM > See phone encounter 5.?Vitamin B12 deficiency?LAB: P-Vitamin B12 (Collection Date & Time - 02/20/2025 10:29 AM)?>2000* Value Reference Range V itamin B12 >2000 H 232-1245 - pg/mL * Latosha Knox 02/22/2025 09: 28:15 AM > See phone encounter * Procedure Codes: G 2211 Complex e/[place], [address] CBC WITH AUTO DIFF, 3077F SYST BP = 140 MM HG6 IT, 3080F DIAST BP = 90 MM HG * Follow Up: 3 Weeks * Images: Billing Information: * Visit Code: 19168 Office Visit, Est Pt., Level 4. * Procedure Codes: G2211 Complex e/[place] [address] CBC WITH AUTO DIFF. 3077F SYST BP = 140 MM HG6 IT. 3080F DIAST BP = 90 MM HG. * Electronic signature of Cornelia Chen MD on 06/05/2025 at 08:46 AM EDT Sign off status: Pending * Provider: Celestino Chen M.D. Date: 02/20/2025 Generated for Inesi ng/Faxing/eTransmitting on: 06/05/2025 08:46 AM EDT History and Physical Notes * HPI (History of Present Illness) Category Sub-Category Detail Notes Category Not es Cardiology Blood Pressure Elevated Pt compl ains of elevated bp at home for a couple weeks. Pt states she has felt awful . Pt complains of feeling shaky, head feels funny and having no energy. Pt states she does have bp log with her today Examination Category Sub-Category Detail Notes Category Not es Cardiology Lungs: clear, no rales or wheezes Heart sounds: RRR, normal S1, S2 Extremities: no leg edema Peripheral pulses: 2 plus bilateral General Appearance: pleasant, NAD
--- OUTSIDE RECORDS SUMMARY | 2025-03-13 06:30 | XMS_ITS ---
Author Organization [facility] Address [address] [id number] Care Team Providers Care Exceptional Needs Teacher Name Role Phone Abimael Singh Primary Care Provider [phone] Erik Chen Unavailable [phone] Allergies Allergen (clinical drug ingredient) Drug/Non Drug Allergy documented on EMR Reaction Allergy Type Onset Date Status almond allergenic extract [place] (Diagnostic) hives Drug Allergy Active cefdinir Cefdinir hives Drug Allergy Active meperidine Demerol hives Drug Allergy Active Sulfamethoxazole hives Drug Allergy Active codeine Codeine vomiting Drug Allergy Active morphine Morphine hives Drug Allergy Active Penicillin hives Drug Allergy Active Tetanus Toxoids nausea, swelling in arms Drug Allergy Active REASON FOR VISIT 3 weeks Medications Medication SIG (Take, Route, Frequency, Duration) Notes Start Date End Date Status Estradiol 1 MG 1 tablet Orally Once a day; Duration: 90 days 02/13/2025 Active Levothyroxine Sodium 88 MCG TAKE 1 TABLE T BY MOUTH EVERY DAY; Duration: 90 Active Metoprolol Succinate ER 25 MG 1 tablet Orally Once a day Active Breo Ellipta 100-25 MCG/ACT INHALE 1 PUF F BY MOUTH EVERY DAY; Duration: 30 days Active Allopurinol 100 MG TAKE 1 TABLET BY EVERY DAY; Duration: 90 Active Losartan Potassium 50 MG 1 tablet Orally Once a day; Duration: 90 days 02/24/2025 Active Vitamin D3 50 MCG (1999) as directed orally once a day; Duration: 30 day(s) Active CoQ-10 100 MG 2 cap(s) orally once a day 06/18/2020 Active Ventolin HFA 108 (90 Base) MCG/ACT 2 puff(s) inhaled every 6 hours as needed Active Rosuvastatin Calcium 20 MG 1 tab(s) oral ly once a day; Duration: 90 days Active Vitamin B-12 1000 MCG 1 tab(s) orally on ce a day; Duration: 30 day(s) 07/02/2020 Active Vital Signs Blood pressure systolic 118 mm Hg 03/13/20 25 Blood pressure diastolic 62 mm Hg 025 Heart Rate 59 /min 03/13/2025 Height 61.50 in 03/13/2025 Weight 156.2 lbs 03/13/2025 BMI 29.03 kg/m2 03/13/2025 Encounters Encounter Location Date Provider Diagnosis [facility] [address] [facility] [address] [place], [place] [id number] 03/13/2025 Erik April Essential hypertensi on I10 ; Hypothyroidism (acquired) E03.9 ; Mixed hyperlipidemia E78.2 and BMI 29.0-29.9,adult Z68.29 Assessments Encounter Date Diagnosis (ICD Code) Assessment Notes Treatment Notes Treatment Clinical Notes Section Notes 03/13/2025 Essential hypertension (ICD-10 - I10) Much improved 03/13/2025 Hypothyroidism (acquired) (ICD-10 - E03.9) 03/13/2025 Mixed hyperlipidemia (ICD-10 - E78.2) 03/13/2025 BMI 29.0-29.9,adult (ICD-10 - Z68.29) Plan Of Treatment Medication Medication Name Sig Start Date Stop Date Notes Metoprolol Succinate ER 25 MG 1 tablet Orally Once a day Losartan Potassium 50 MG 1 tablet Orally Once a day; Duration: 90 days 02/24/2025 Treatment Notes Assessment Notes Essential hypertension Much improved Next Appt Details Follow Up: as scheduled,and prn, Reason: Provider Name:Abimael Betancourt er, 09/11/2025 10:45:00 AM, [address], [place], [id number], Progress Notes * JEFRY AUSTINOB:1955 (69 yo F)Acc No.[id number]:03/13/2025 Progress Notes Patient: RISHABH BRUNO Provider: Celestino Chen M.D. :1955 A ge:69 Y S ex:Female Date:03/13/2025 Address:[address] [place], [place] [address] Pcp:Abimael Singh Subjective: * Chief Complaints: * 1 . 3 weeks. * HPI: C ardiology: Blood Pressure Elevated P t presents today for a 3 week follow up on elevated BP. Pt sts that she is doing much better and her BP has been well controlled at home. * ROS: D ERMATOLOGY: no R dayanna. n o H ana m. G ASTROENTEROLOGY: no N ausea. n o V omiting. U ROLOGY: no D ifficulty urinating. n o B lood in urine. * Medical History: C OPD, Hyperlipidemia, Hypothyroidism, Cologuard Negative 2023. * Surgical History: T onsillectomy 1958, Appendectomy 1962, Hysterectomy 1980, Heart Cath 12/23/2018, [place], RT Shoulder Steroid Inhection 02/26/2025. * [...] every 6 hours as needed , Taking Rosuvastatin Calcium 20 MG Tablet [...] 1 tablet Orally Once a day , Taking Metoprolol Succinate ER 25 MG Tablet Extended Release 24 Hour 1 tablet Orally Once a day , Taking Losartan Potassium 50 MG Tablet 1 tablet Orally Once a day , Medication List reviewed and reconciled with the patient * Allergies: P enicillin: hives, Sulfamethoxazole: hives, Cefdinir: hives, Morphine: hives, Demerol: hives, Codeine: vomiting, Tetanus Toxoids: nausea, swelling in arms, [place] (Diagnostic): hives. Objective: * Vitals: W t: 156.2, Temp: 98.0, BP: 118/62, HR: 59, Nurse: SAMARA, Ht: 61.50, BMI:29.03. * Examination: C ardiology: General Appearance: p leasant, NAD. H eart sounds: R RR, normal S1, S2. L ungs: c lear, no rales or wheezes. E xtremities: n o leg edema. P eripheral pulses: 2 plus bilateral. Assessment: * Assessment: 1. E ssential hypertension - I10 (Primary) 2 . H ypothyroidism (acquired) - E03.9 3 . M ixed hyperlipidemia - E78.2 4 . B NH 29.0-29.9,adult - Z68.29 Plan: * Treatment: * Procedure Codes: G 2211 Complex e/m visit add on, 3074F SYST BP LT 130 MM HG, 3078F DIAST BP < 80 MM HG * Follow Up: a s scheduled,and prn * Images: Billing Information: * Visit Code: 85697 Office Visit, Est Pt., Level 3. * Procedure Codes: G2211 Complex e/m visit add on. 3074F SYST BP LT 130 MM HG. 3078F DIAST BP < 80 MM HG. * Electronic signature of Cornelia Chen MD on 06/05/2025 at 08:47 AM EDT Sign off status: Pending * Provider: Celestino Chen M.D. Date: 0 03/13/2025 Generated for Mely atkins/Sofia/eTvioletteitting on: 0 06/05/2025 08:47 AM EDT History and Physical Notes * HPI (History of Present Illness) Category Sub-Category Detail Notes Category Not es Cardiology Blood Pressure Elevated Pt prese nts today for a 3 week follow up on elevated BP. Pt sts that she is doing much better and her BP has been well controlled at home Examination Category Sub-Category Detail Notes Category Not es Cardiology Lungs: clear, no rales or wheezes Heart sounds: RRR, normal S1, S2 Extremities: no leg edema Peripheral pulses: 2 plus bilateral General Appearance: pleasant, NAD
--- OUTSIDE RECORDS SUMMARY | 2025-04-24 05:30 | XMS_ITS ---
Author Organization [facility] Address [address] [id number] Care Team Providers Care Auto Rental Supervisor Name Role Phone Abimael Singh Primary Care Provider Allergies Allergen (clinical drug ingredient) Drug/Non Drug Allergy documented on EMR Reaction Allergy Type Onset Date Status almond allergenic extract Lyons (Diagnostic) hives Drug Allergy Active cefdinir Cefdinir hives Drug Allergy Active meperidine Demerol hives Drug Allergy Active Sulfamethoxazole hives Drug Allergy Active codeine Codeine vomiting Drug Allergy Active morphine Morphine hives Drug Allergy Active Penicillin hives Drug Allergy Active Tetanus Toxoids nausea, swelling in arms Drug Allergy Active REASON FOR VISIT 6 month ckup, Needs labs Medications Medication SIG (Take, Route, Frequency, Duration) Notes Start Date End Date Status Metoprolol Succinate ER 25 MG 1 tablet Orally Once a day Active Losartan Potassium 50 MG 1 tablet Orally Once a day; Duration: 90 days 02/24/2025 Active Allopurinol 100 MG TAKE 1 TABLET BY MAGNOLIA TH EVERY DAY; Duration: 90 Active Levothyroxine Sodium 88 MCG TAKE 1 TABLE T BY MOUTH EVERY DAY; Duration: 90 Active Rosuvastatin Calcium 20 MG 1 tab(s) oral ly once a day; Duration: 90 days Active Vitamin D3 50 MCG (1999) as directed orally once a day; Duration: 30 day(s) Active Ventolin HFA 108 (90 Base) MCG/ACT 2 puff(s) inhaled every 6 hours as needed Active CoQ-10 100 MG 2 cap(s) orally once a day 06/18/2020 Active Estradiol 1 MG 1 tablet Orally Once a day; Duration: 90 days 02/13/2025 Active Breo Ellipta 100-25 MCG/ACT INHALE 1 PUF F BY MOUTH EVERY DAY; Duration: 30 days Active Vitamin B-12 1000 MCG 1 tab(s) orally on ce a day; Duration: 30 day(s) 07/02/2020 Active Vital Signs Blood pressure systolic 118 mm Hg 04/24/20 25 Blood pressure diastolic 74 mm Hg 025 Heart Rate 82 /min 04/24/2025 Height 61.50 in 04/24/2025 Weight 156.6 lbs 04/24/2025 BMI 29.11 kg/m2 04/24/2025 Encounters Encounter Location Date Provider Diagnosis [facility] [address] [facility] [address], [place] [id number] 04/24/2025 Abimael Singh Essential hypertensi on I10 ; Hormone replacement therapy Z79.890 ; Mixed hyperlipidemia E78.2 ; Hypothyroidism (acquired) E03.9 ; BMI 29.0-29.9,adult Z68.29 and Osteopenia M85.80 Assessments Encounter Date Diagnosis (ICD Code) Assessment Notes Treatment Notes Treatment Clinical Notes Section Notes 04/24/2025 Essential hypertension (ICD-10 - I10) 04/24/2025 Hormone replacement therapy (ICD-10 - Z79.890) 04/24/2025 Mixed hyperlipidemia (ICD-10 - E78.2) 04/24/2025 Hypothyroidism (acquired) (ICD-10 - E03.9) 04/24/2025 BMI 29.0-29.9,adult (ICD-10 - Z68.29) 04/24/2025 Osteopenia (ICD-10 - M85.80) Plan Of Treatment Medication Medication Name Sig Start Date Stop Date Notes Metoprolol Succinate ER 25 MG 1 tablet Orally Once a day Losartan Potassium 50 MG 1 tablet Orally Once a day; Duration: 90 days 02/24/2025 Allopurinol 100 MG TAKE 1 TABLET BY MAGNOLIA TH EVERY DAY; Duration: 90 Levothyroxine Sodium 88 MCG TAKE 1 TABLE T BY MOUTH EVERY DAY; Duration: 90 Rosuvastatin Calcium 20 MG 1 tab(s) oral ly once a day; Duration: 90 days Next Appt Details Follow Up: 4 Months, Reason: Provider Name:Abimael Betancourt er, 09/11/2025 10:45:00 AM, [address], [address], [place], [place], [phone], Progress Notes * JEFRY AUSTINOB:1955 (69 yo F)Acc No.[id number]:04/24/2025 Progress Notes Patient: RISHABH BRUNO Provider: Abimael Singh M.D. :1955 A ge:69 Y S ex:Female Date:04/24/2025 Address:[address] [place] [address], [place] [address] Subjective: * Chief Complaints: * 1 . 6 month ckup. 2. Needs labs. * HPI: C ardiology: 69 year old female presents with c/o Blood Pressure Elevated?Pt is here today for a 6 month check up with fasting labs. Pt sts she is still checking her BP at home and sts it has been better since taking her BP medication. * ROS: D ERMATOLOGY: no R dayanna. n o H ana m. G ASTROENTEROLOGY: no N ausea. n o V omiting. U ROLOGY: no D ifficulty urinating. n o B lood in urine. * Medical History: C OPD, Hyperlipidemia, Hypothyroidism, Cologuard Negative 2023. * Surgical History: T onsillectomy 1958, Appendectomy 1962, Hysterectomy 1980, Heart Cath 12/23/2018, Colonoscopy, Margaret Hawthorne 2018, RT Shoulder Steroid Inhection 02/26/2025. * Family History: F ather: , diagnosed [...] vomiting, Tetanus Toxoids: nausea, swelling in arms, Lyons (Diagnostic): hives. Objective: * Vitals: W t: 156.6, Temp: 97.9, BP: 118/74, HR: 82, Nurse: [facility], Ht: 61.50, BMI:29.11. * Examination: G eneral Examination: General Appearance: N AD. H EENT: s ubtle exophthalmos. O ral cavity: n o lesions, mucosa moist and WNL, no erythema. N leslie: s upple, no lymphadenopathy. C hest: n ormal shape and expansion. H eart: R SR, 114/60. L ungs: c lear to auscultation. A bdomen: soft and nontender, no organomegaly or masses. N eurologic Exam: I ntact, gait normal, resting tremor has decreased. S kin: n ormal, no rash. P eripheral pulses: n ormal . B ack: mild dorsal kyphosis. E xtremities: n o leg edema. Assessment: * Assessment: 1. E ssential hypertension - I10 (Primary) 2 . H ormone replacement therapy - Z79.890 3 . M ixed hyperlipidemia - E78.2 4 . H ypothyroidism (acquired) - E03.9 5 . B IN 29.0-29.9,adult - Z68.29 6 .?Osteopenia - M85.80 Plan: * Treatment: 2. M ixed hyperlipidemia Refill Rosuvastatin Calcium Tablet, 20 MG, 1 tab(s), orally, once a day, 90 days, 90 Tablet, Refills 1. 3. H ypothyroidism (acquired) Refill Levothyroxine Sodium Tablet, 88 MCG, TAKE 1 TABLET BY MOUTH EVERY DAY, 90, 90 Tablet, Refills 1. 4. O thers Refill Allopurinol Tablet, 100 MG, TAKE 1 TABLET BY MOUTH EVERY DAY, 90, 90 Tablet, Refills 1. * Procedure Codes: G 2211 Complex e/m visit add on, 1036F TOBACCO NON-USER, G8420 BMI<30 AND >=22 CALC & DOCU, G8950 PREHTN/HTN BP DOC INDCD F/U DOC, G8752 MOST RECENT SYSTOLIC BP < 140MM HG, G8754 MOST RECENT DIASTOLIC BP < 90MM HG, 3017F COLORECTAL CA SCREEN DOC REV, G9899 Scrn camila perf rslts doc * Preventive Medicine: Screening / Special Tests: M ammogram , negative. C olonoscopy C ologuard:05/16/2024, negative. B one mineral Density , osteopenia. * Follow Up: 4 Months * Images: Billing Information: * Visit Code: 91227 Office Visit, Est Pt., Level 4. * Procedure Codes: G2211 Complex e/m visit add on. 1036F TOBACCO NON-USER. G8420 BMI<30 AND >=22 CALC & DOCU. G8950 PREHTN/HTN BP DOC INDCD F/U DOC. G8752 MOST RECENT SYSTOLIC BP < 140MM HG. G8754 MOST RECENT DIASTOLIC BP < 90MM HG. 3017F COLORECTAL CA SCREEN DOC REV. G9899 Scrn camila perf rslts doc. * Electronic signature of Abimael Singh MD on 06/05/2025 at 08:46 AM EDT Sign off status: Pending * Provider: Abimael Singh M.D. Date: 0 04/24/2025 Generated for Mely atkins/Sofia/eTjamiesmitting on: 0 06/05/2025 08:46 AM EDT History and Physical Notes * HPI (History of Present Illness) Category Sub-Category Detail Notes Category Not es Cardiology Blood Pressure Elevated Pt is he re today for a 6 month check up with fasting labs. Pt sts she is still checking her BP at home and sts it has been better since taking her BP medication Examination Category Sub-Category Detail Notes Category Not es General Examination HEENT: subtle exophthalmos Heart: RSR, 114/60 Lungs: clear to auscultatio n Abdomen: soft and nontender, no organomegaly or masses Extremities: no leg edema General Appearance: NAD Skin: normal, no rash Neurologic Exam: Intact, gait normal, resting tremor has decreased Neck: supple, no lymphaden opathy Oral cavity: no lesions, mucosa m oist and WNL, no erythema Peripheral pulses: normal Back: mild dorsal kyphosis Chest: normal shape and exp ansion
--- OUTSIDE RECORDS SUMMARY | 2025-06-05 08:47 | XMS_ITS | Clinical Summary ---
Author Organization [facility] Address [address] [place] [address] Care Team Providers Care Dobie Man Name Role Phone Jun Singh MD Primary Care Provider [phone] Allergies Active Allergy Reactions Criticality Noted Date Comments Cefdinir Hives High 12/23/2018 Codeine Nausea And Vomiting Low 03/11/2017 Meperidine Hives Low 03/11/2017 Morphine And Codeine Hives Low 03/11/2017 Nuts Hives Low 03/11/2017 Almonds only Penicillins Swelling Medium 03/11/2017 Hives, lip, face swelling Sulfa Antibiotics Swelling Low 03/11/2017 Hives, lip, face swelling Sulfaethidole Hives Low 03/18/2024 Tetanus Toxoids Nausea And Vomiting,Swelling Low 03/11/2017 Swelling in arm and N/V Medications cholecalciferol (VITAMIN D3) 1000 units tablet Take 2 tablets by mouth Daily. Active aspirin 81 MG EC tablet Take 1 tablet by mouth Daily. Active levothyroxine (SYNTHROID, LEVOTHROID) 88 MCG tablet Take 1 tablet by mouth Daily. Active estrogens, conjugated, (PREMARIN) 0.625 MG tablet Take 1 tablet by mouth Daily. Take daily for 21 days then do not take for 7 days. Active pravastatin (PRAVACHOL) 40 MG tablet Take 1 tablet by mouth Every Night. Active potassium chloride (K-DUR) 10 MEQ CR tablet Take 2 tablets by mouth Daily. Active furosemide (LASIX) 40 MG tablet Take 40 mg by mouth Daily. Active nicotine (NICODERM CQ) 21 MG/24HR patch Place 1 patch on the skin as directed by provider Daily As Needed. Active Fluticasone Furoate-Vilante rol (BREO ELLIPTA) 100-25 MCG/INH inhaler Inhale 1 puff Daily. Active VENTOLIN HFA 108 (90 Base) MCG/ACT inhaler Inhale 2 puffs Every 6 (Six) Hours As Needed. 3 05/27/2019 Active allopurinol (ZYLOPRIM) 100 MG tablet Take 1 tablet by mouth Daily. Active vitamin B-12 (CYANOCOBALAMIN ) 1000 MCG tablet Take 1 tablet by mouth Daily. Active Coenzyme Q10 (CoQ10) 30 MG capsule Take 1 tablet by mouth Daily. Active rosuvastatin (CRESTOR) 20 MG tablet Take 1 tablet by mouth Daily. Active metoprolol succinate XL (TOPROL-XL) 25 MG 24 hr tablet Take 0.5 tablets by mouth Daily. 02/03/2024 Active Active Problems Problem Noted Date Diagnosed Date Arthralgia 03/17/2024 Assessment & Plan (03/21/2024 4:15 PM EDT): Primarily in the CMC joint its, knees, and feet. Degenerative in nature. Not associated with fusiform swelling. No gout-like flares. RYAN positive 1:80 speckled. All subtypes negative and complements normal. Rheumatoid factor and CCP antibodies negative. Uric acid 9.1 and PCP started allopurinol.. She continues with stable mild degenerative disease. She is doing well overall. The antinuclear antibody is an incidental finding without current clinical meaning. Pt global is 2/10 and VAS is 2/10. She does not want further intervention at this time. I can see in one year. I reviewed labs from PCP. . Hyperuricemia 03/17/2024 Assessment & Plan (03/21/2024 4:15 PM EDT): Uric acid was 9.1. She is now on allopurinol per her PCP. She has no history of gout like flares. She has done well with this. Positive RYAN (antinuclear antibody) 03/17/2024 Assessment & Plan (03/21/2024 4:15 PM EDT): 1: 80 speckled. Crithidia double-stranded DNA and complements were normal. All subtypes were negative. No evidence of antinuclear antibody related disease. Osteoarthritis of carpometac arpal (CMC) joint of both thumbs 03/17/2024 Assessment & Plan (03/21/2024 4:15 PM EDT): Left appears worse than the right. Voltaren gel helps. We discussed injection, surgery, or splinting. She declined. Primary osteoarthritis of both feet 03/17/2024 Assessment & Plan (03/21/2024 4:15 PM EDT): Pain is mild and acceptable. Mainly in 1st MTP. Edema 03/17/2024 Assessment & Plan (03/21/2024 4:15 PM EDT): This is pedal edema and not inflammatory swelling in her feet. Chronic pain of both knees 03/17/2024 Assessment & Plan (03/21/2024 4:15 PM EDT): She probably has some degree of degenerative arthritis and patellofemoral arthritis. Her symptoms remain very low-grade and she does not wish intervention. Abnormal stress test 12/16/2018 Overview (12/16/2018): Added automatically from request for surgery [id number] Immunizations Immunization Administration Dates Next Due Fluad Quad 65+ 08/18/2019 Family History Medical History Relation Name Comments Other Father MESOTHELIOMA Kidney cancer Mother Breast cancer Sister Thyroid disease Sister Heart disease Neg Hx Relation Name Status Comments Father Mother Sister Social History Tobacco Use Types Packs/Day Years Used Date Smoking Tobacco: Former Cigarettes 1 40 0 07/23/1978 - 07/23/2018 Passive Smoke Exposure: Never Smokeless Tobacco: Never Tobacco Cessation:Counseling Given: Not Answered Alcohol Use Standard Drinks/Week Comments No 0 (1 standard drink = 0.6 oz pur e alcohol) AUDIT-C Answer Date Recorded Frequency of Alcohol Consumption Never 12/23/2018 Average Number of Drinks Not on file 019 Frequency of Binge Drinking Not on file 12/10 Abuse Screen Answer Date Recorded Unsafe at Home or Work/School Not on file Feels Threatened by Someone? Not on file 07/2023 Does Anyone Keep You from Co ntacting Others or Doint Things Outside the Home? Not on file 08/17/2023 Physical Sign of Abuse Present Not on file 1 Housing Stability Answer Date Recorded Current Living Arrangements Not on file 07/2023 Potentially Unsafe Housing Conditions Not on shannan e 08/17/2023 Family and Community Support Answer Manish e Recorded Help with Day-to-Day Activities Not on file 08/17/2023 Lonely or Isolated Not on file 08/17/2023 Employment Answer Date Recorded Do you want help finding or keeping work or a magda b? Not on file 08/17/2023 Disabilities Answer Date Recorded Concentrating, Remembering, or Making Decisions Difficulty Not on file 08/17/2023 Doing Errands Independently Difficulty Not on fi le 08/17/2023 Education Answer Date Recorded Help with school or training? Not on file Preferred Language Not on file 08/17/2023 Comments Unknown Sex and Gender Information Value Date Recorded Sex Assigned at Not on file Legal Sex Female 10:02 AM EDT Gender Identity Not on file Sexual Orientation Not on file Last Filed Vital Signs Vital Sign Reading Time Taken Comments Blood Pressure 130/78 03/21/2024 3:42 PM EDT Pulse 68 03/21/2024 3:42 PM EDT Temperature 36.5 C (97.7 F) 03/21/2024 3:42 PM EDT Respiratory Rate 15 12/23/2018 12:3 8 PM EST Oxygen Saturation 97% 12/23/2018 3:00 PM EST Inhaled Oxygen Concentration - - Weight 73.4 kg (161 lb 12.8 oz) 03/21/2024 3:42 PM EDT Height 157.5 cm (5' 2.01 ) 03/21/2024 3:42 PM ED T Body Mass Index 29.59 03/21/2024 3:42 PM EDT Plan of Treatment Upcoming Encounters Date Type Department Care Team (Late st Contact Info) Description 08/02/2025 2:00 PM EDT Office Visit [facility] RHEUMATOLOGY [address] [address] Hiren Wilks MD [address] [address] Health Maintenance Due Date Last Done Comments DXA SCAN 1953 MAMMOGRAM 1993 COLOGUARD 1998 COLON CANCER SCREENING 5 YEA R SIGMOIDOSCOPY 1998 COLONOSCOPY 1998 [address] CANCER SCREENING 1998 CT COLONOGRAPHY 1998 FECAL OCCULT BLOOD TEST 1998 FIT Testing (1 year) 1998 ANNUAL WELLNESS VISIT 12/20/2018 HEPATITIS C SCREENING 12/20/2018 ZOSTER VACCINE (2 of 2) 11/01/2020 09/06/2020 COVID-19 Vaccine (2023-2 5 season) 2024 08/07/2023, 09/11/2022, 02/10/2022, Additional history exists INFLUENZA VACCINE 08/09/2025 08/27/2022, , 07/31/2020, Additional history exists LUNG CANCER SCREENING Discontinued 03/11/2017 Pneumococcal Vaccine 50+ Completed 03/09/2023 Procedures Procedure Name Priority Date/Time Associated Diagnosis Comments CT CHEST WO CONTRAST DIAGNOSTIC Routine 03/11/2017 11:27 AM EDT Cough SOB (shortness of breath) Wheezing from Last 3 Months or Most Recently Relevant to Health Maintenance Results * CT chest wo contrast (03/11/2017 11:27 AM EDT) Anatomical Region Laterality Modality Chest N/A Computed Tomogra phy 03/11/2017 3:52 PM EDT Impressions 03/12/2017 4:13 PM EDT No acute chest pathology. E: 03/11/2017 This report was finalized on 03/12/2017 4:[address] Jose C Lui MD. Narrative 03/12/2017 4:13 PM EDT EXAMINATION: CT CHEST WITHOUT CONTRAST-03/11/2017: INDICATION: COUGH, SOA, WHEEZING; W77-Flbjc; R06.02-Shortness of breath; R06.2-Wheezing, cough and wheezing. TECHNIQUE: Multislice helical CT with two-dimensional reformatted images. The radiation dose reduction device was turned on for each scan per the ALARA (As Low as Reasonably Achievable) protocol. COMPARISON: NONE. FINDINGS: The visible portions of the thyroid gland are normal. There is no significant axillary adenopathy. The aorta branches normally. The heart size is grossly unremarkable. The course and caliber of the esophagus is normal. The visible abdominal organs are grossly unremarkable. The trachea and bronchi are mildly dilated. There is some atelectasis in the right upper lobe anteriorly. Trace atelectasis is present in the posterior costophrenic angles. The osseous structures of the chest are grossly normal. Procedure Note Jose C Lui MD - 03/12/2017 EXAMINATION: CT CHEST WITHOUT CONTRAST-03/11/2017: INDICATION: COUGH, SOA, WHEEZING; J72-Obiih; R06.02-Shortness of breath; R06.2-Wheezing, cough and wheezing. TECHNIQUE: Multislice helical CT with two-dimensional reformatted images. The radiation dose reduction device was turned on for each scan per the ALARA (As Low as Reasonably Achievable) protocol. COMPARISON: NONE. FINDINGS: The visible portions of the thyroid gland are normal. There is no significant axillary adenopathy. The aorta branches normally. The heart size is grossly unremarkable. The course and caliber of the esophagus is normal. The visible abdominal organs are grossly unremarkable. The trachea and bronchi are mildly dilated. There is some atelectasis in the right upper lobe anteriorly. Trace atelectasis is present in the posterior costophrenic angles. The osseous structures of the chest are grossly normal. IMPRESSION: No acute chest pathology. E: 03/11/2017 This report was finalized on 03/12/2017 4:[address] Jose C Lui MD. Halina RYAN IMG CT ORDERABLES Final Resu lt from Last 3 Months or Most Recently Relevant to Health Maintenance [place] [address] MEDICARE A & B [facility] SUPP Advance Directives Documents on File Type Date Recorded Patient Dress Designer Expl anation LIVING WILL - SCAN 12/23/2018 7:46 AM LETY NG WILL 09-26-2013 Care Teams Dobie Man Relationship Specialty Start Date End Date Jun Singh MD [address] [facility] [address] [place] [address] PCP - General Family Medicine 03/21/24
--- OUTSIDE RECORDS SUMMARY | 2025-06-05 08:47 | XMS_ITS | Data Portability ---
Author Organization [facility] [place], [facility] ADMIN Address [address] [place] [id number] Assessment No assessment recorded. Plan of Treatment Reminders Order Date Submit Date Provider Last Modified By Organization Details Last Modified Time Details Appointments None recorded. Lab None recorded. Referral None recorded. Procedures None recorded. Surgeries None recorded. Imaging LDCT, chest, for lung cancer screening 2021 023 [facility] (Centralized Scheduling), [address], [place], [address], 3 09:25:17 Medication Orders None recorded. Patient TargetsNo targets recorded. Patient InstructionsNo instructions recorded. Reason for Referral None Reported. Problems Name Problem SNOMED Code Status Onset Date Resolution Date Notes Provider Name and Address Organization Details Recorded Time Pain in face 80106273 Active Maryam Wiliam coral, [facility] - [facility] - [place] & [place] 2 15:58:11 Nicotine dependence 43329364 Active Maryambrittni moncada, [facility] - [facility] - [facility] & [place] 2 15:58:11 Eczema of external auditory canal 59871389 Active Maryambrittni Swain null, [facility] - [facility] & [place] 2 15:58:11 Hypothyroidis m 21895263 Active Maryam moncada, [facility] - [facility] & [place] 2 15:58:11 Pulmonary emphysema 21369407 Active Maryam moncada, [place] - [facility] & [place] 2 15:58:11 Lung mass 029111472 Active Maryam moncada, [place] - [facility] & [place] 2 15:58:11 Dyspnea on exertion 08450799 Active 2021 Ahsan Dixon MD [address] , [place], [address] , [facility] & [place] 2 13:24:58 Tobacco dependence in remission 298357707 Active 2021 Ahsan Dixon MD [address], [place], [address] , [facility] & [place] 2 13:25:13 Problem Notes None recorded. Procedures Surgical History Date Name Laterality Status Provider Name and Address Organization Details Recorded Time Remove tonsils and adenoids completed Maryam Grant [facility] & [place] 09/09/2022 16:02:35 Appendectomy completed Maryam Wiliam [place] [facility] & [place] 09/09/2022 16:02:43 hysterectomy completed Maryam Wiliam [place] [facility] & [place] 09/09/2022 16:02:50 Imaging Results None recorded. Procedure Notes None recorded. Medical Equipment None Reported. Allergies Allergen ID Allergen Name Allergen Category Reaction Reaction Severity Criticality Documentation Date Start Date Code Code System Note Provider Name and Address Organization Details Recorded Time 39853 morphine medicatio n Not available Not available Not available 09/09/2022 7052 RxNorm [place] Swanson [facility] & [place] 2 15:58:11 05277 codeine medicatio n Not available Not available Not available 09/09/2022 2670 RxNorm [place] Swanson NT [facility] & [place] 2 15:58:11 05851 cefdinir medicatio n Not available Not available Not available 09/09/2022 37626 RxNorm [place] Swanson [facility] & [place] 2 15:58:11 79367 meperidin e medicatio n Not available Not available Not available 09/09/2022 6754 RxNorm [place] Swanson NT [facility] & [place] 2 15:58:33 39329 Product containin g penicilli n (product) medicatio n Not available Not available Not available 09/09/2022 02168 8001 SNOMED [place] Swanson [facility] & [place] 2 15:58:44 74745 Substance with sulfonami de structure and antibacte rial mechanism of action (substanc e) medicatio n Not available Not available Not available 09/09/2022 58570 8003 SNOMED [place] Swanson [facility] & [place] 2 15:58:53 50622 Demerol medicatio n Not available Not available Not available 09/09/2022 92402 1 RxNorm [place] Swanson [facility] & [place] 2 15:59:04 08395 tetanus immune globulin, human medicatio n Not available Not available Not available 09/09/2022 42913 RxNorm [place] Swanson [facility] & [place] 2 15:59:17 47259 Shingrix medicatio n Not available Not available Not available 09/09/2022 44994 26 RxNorm [place] Swanson [facility] & [place] 2 15:59:36 Medications Name Sig Start Date [...] blood by Pulse oximetry Heart rate Systolic And Diastolic Provider Name and Address Organization Details Last Updated DateTime 2 53316.1 5 g 30 kg/m2 157.48 cm 97.3 [degF] 100 % 100 % 65 /min 142/79 mm[Hg] Maryam Swain [facility] & [place] 2 11:12:02 Social History Question Answer Notes LastModified by Organizat ion Details LastModified Time Tobacco Smoking Status Former Smoker Maryam moncada [facility] & [place] 09/09/2022 16:02:26 When Did You Quit Smoking? 1-5yearssinc elastcigaret te 08/2018 [email or web address] Information not available 09/09/2022 What Is Your Current Pack Years? 30ormorepack years 1 PPD [email or web address] Information not available 09/09/2022 At What Age Did You Start Smoking Tobacco? 23 Information not available 09/09/2022 How Many Years Have You Smoked Tobacco? 40 [email or web address] Information not available 09/09/2022 Sex: Unknown Functional Status Question Answer Note LastModified by Organizat ion Details LastModified Time Do you use any illicit or recreational drugs? No [email or web address] Information not available 09/09/2022 What is your level of alcohol consumption? None [email or web address] Information not available 09/09/2022 Mental Status None recorded. Family History Relationship Description Onset Age of this Age Resolved Age Notes LastModified by Organization Details LastModified Time Father Family member [email or web address] Not available 2021 16:01:16 Mother Family member [email or web address] Not available 2021 16:01:16 Medical History Condition Response Thyroid Disease Y COPD Y Gynecological HistoryNo gynecological history recorded. Obstetrics History GPAL:G 0 P 0 0 0 0 Past Encounters Encounter ID Performer Location Encounter Start Date Encounter Closed Date Diagnosis/Indication Diagnosis SNOMED-CT Code Diagnosis ICD10 Code Diagnosis Note [id number] Ahsan Dixon MD [facility] [address] [facility] [place] [address] 09/10/2022 11:04:04 09/10/2022 11:29:56 Pulmonary emphysema 42756640 J43.9 Spirometry done in the office today [...] Screening for malignant neoplasm of respiratory tract 173653214 Z12.2 The patient has participat ed in [...] weight loss). Tobacco de pendence in remission 737090149 F17.201 Patient quit smoking few years ago [...] Name 09/09/2022 1 [place] Sofya Younger [id number] Sofya Younger 09/09/2022 2 [place] [id number] Sofya Younger [id number] Sofya Younger OBGyn Episode No OBEpisode recorded.
--- OUTSIDE RECORDS SUMMARY | 2025-06-05 08:47 | XMS_ITS | Patient Health Record ---
Author Organization [facility] Address [address] [id number] Care Team Providers Care Ict Help Desk Officer Name Role Phone Abimael Singh Primary Care Provider [place] Erik Unavailable [phone] Allergies Allergen (clinical drug ingredient) Drug/Non Drug Allergy documented on EMR Reaction Allergy Type Onset Date Status almond allergenic extract [place] (Diagnostic) hives Drug Allergy Active cefdinir Cefdinir [...] 400 P-Vitamin B12 Reviewed date:02/22/2025 09:28:25 AM Interpretation:>1999 Performing Lab: Notes/Report: Test performed by [facility] [address] [place] [address] , [address], [place] [address] Alex Escamilla MD, Rn Ed CLIA: [id number] Vitamin B12 >2000 232-1245 pg/mL P-Comprehensive Metabolic Pa ben (CMP) Reviewed date:02/22/2025 09:28:25 AM Interpretation:wiliam 10.5 Performing Lab: Notes/Report: Test performed by [facility] [address] [place] [address] , [address], [place] [address] Alex Escamilla MD, Rn Ed CLIA: [id number] Sodium 140 135-145 mmol/L Potassium 4.8 3.5-5.3 [...] Interpretation:Normal Performing Lab: Notes/Report: Test performed by [facility] [address] [place] [address] , [address], [place] [address] Alex Escamilla MD, Rn Ed CLIA: [id number] Thyroxine Free (free T4) 1.71 0.86-1.76 ng/dL P-Lipid Panel Reviewed date:02/22/2025 09:28:25 AM Interpretation:trigs 206 Performing Lab: Notes/Report: Test performed by [facility] [address] [place] [address] , [address], [place] [address] Alex Escamilla MD, Rn Ed CLIA: [id number] Cholesterol 189 <200 mg/dL Triglycerides 206 <150 [...] Interpretation:Normal Performing Lab: Notes/Report: Test performed by [email or web address] , [address], [place] [address] Alex Escamilla MD, Rn Ed CLIA: [id number] TSH 0.98 0.43-5.25 mU/L P-Microalbumin/Creatinine, R andom Urine Sample Reviewed date:02/22/2025 09:28:25 AM Interpretation:Normal Performing Lab: Notes/Report: [facility] , [address], [place] [address] Alex Escamilla MD, Rn Ed CLIA: [id number] Albumin/Creatinine Ratio, Urine 6 0-30 ug/m g Microalbumin, Urine, Random 0.7 Creatinine, Urine 125.3 P-Uric Acid Reviewed date:02/22/2025 09:28:25 AM Interpretation:Normal Performing Lab: Notes/Report: Test performed by [facility] , [address], [place] [address] Alex Escamilla MD, Rn Ed CLIA: [id number] Uric Acid 4.5 2.4-7.0 mg/dL P-Comprehensive Metabolic Pa ben (CMP) Reviewed date:10/26/2024 03:29:55 PM Interpretation:satisfactory Performing Lab: Notes/Report: [facility] , [address], [place] [address] Alex Escamilla MD, Rn Ed CLIA: [id number] Sodium 139 135-145 mmol/L Potassium 4.2 3.5-5.3 mmol/L Chloride 104 97-108 mmol/L CO2 24 22-32 mmol/L Glucose 103 65-99 mg/dL BUN 13 8-23 mg/dL Creatinine 0.97 0.50-1.00 mg/dL Calcium 9.7 8.6-10.4 mg/dL eGFR by Creatinine 62 >59 mL/min/1.73m2 Protein 7.1 6.0-8.3 g/dL Albumin 4.1 3.5-5.3 g/dL Alkaline Phosphatase 82 35-121 IU/L ALT (SGPT) 14 <5-47 IU/L AST (SGOT) 18 <5-40 IU/L Bilirubin, Total 0.4 <0.2-1.2 mg/dL A/G Ratio 1.4 1.1-2.5 Reason For Referral No Information Medications Medication SIG (Take, Route, Frequency, Duration) Notes Start Date End Date Status Metoprolol Succinate ER 25 MG 1 tablet Orally Once a day Active Losartan Potassium 50 MG 1 tablet Orally Once a day; Duration: 90 days 02/24/2025 Active Vitamin D3 50 MCG (2000 UT) as directed orally once a day; Duration: 30 day(s) Active Allopurinol 100 MG TAKE 1 TABLET BY MAGNOLIA TH EVERY DAY; Duration: 90 Active Vitamin B-12 1000 MCG 1 tab(s) orally on ce a day; Duration: 30 day(s) 07/02/2020 Active Levothyroxine Sodium 88 MCG TAKE 1 TABLE T BY MOUTH EVERY DAY; Duration: 90 Active Rosuvastatin Calcium 20 MG 1 tab(s) oral ly once a day; Duration: 90 days Active Ventolin HFA 108 (90 Base) MCG/ACT 2 puff(s) inhaled every 6 hours as needed Active CoQ-10 100 MG 2 cap(s) orally once a day 06/18/2020 Active Estradiol 1 MG 1 tablet Orally Once a day; Duration: 90 days 02/13/2025 Active Breo Ellipta 100-25 MCG/ACT INHALE 1 PUF F BY MOUTH EVERY DAY; Duration: 30 days Active Immunizations Vaccine Route Administration Date Status Comme nts COVID 19 Moderna Unknown 02/10/2022 Administered COVID 19 Pfizer Unknown 01/02/2021 Administered COVID 19 Pfizer Unknown 01/26/2021 Administered COVID 19 Pfizer Unknown 08/12/2021 Administered COVID 19 Pfizer Unknown 08/07/2023 Administered Fluzone High Dose (65yr and older) IM Intramuscular 07/31/2020 Administered Fluzone High Dose (65yr and older) IM Intramuscular 07/25/2021 Administered Fluzone High Dose (65yr and older) IM Intramuscular 08/27/2022 Administered Fluzone High Dose (65yr and older) IM Intramuscular 2023 Administered Fluzone PF Quad (6-35 months) Unknown 08/07/2017 Administered Fluzone PF Quad (6-35 months) Unknown 08/09/2018 Administered Prevnar (PCV20) IM Intramuscular 03/09/2023 Administered Shingrix Unknown 09/06/2020 Administered Shingrix IM Intramuscular 09/08/2020 Administered xFluzone High Dose-private (65yr&older) Unknown 08/20/2024 Administered Zostavax IM Intramuscular 09/06/2020 Administered Problems Problem Type SNOMED Code ICD Code Onset Dates Problem Status W/U Status Risk Notes Problem Hypothyroidism (47480674) Hypothyroidism (acquired) (E03.9) Active confirmed Problem Vitamin B12 deficiency (389843065) Vitamin B12 deficiency (E53.8) Active confirmed Problem Essential hypertension (85525090) Essential hypertension (I10) Active confirmed Problem Osteopenia (087987536) Osteopenia (M85.80) Active confirmed Problem Hyperuricemia (86784075) Hyperuricemia (E79.0) Active confirmed Problem Mixed hyperlipidemia (930567929) Mixed hyperlipidemia (E78.2) Active confirmed Problem Asymptomatic postprocedural ovarian failure (481933993044311) Asymptomatic postprocedural ovarian failure (E89.40) Active confirmed Problem Simple chronic bronchitis (89566622) Simple chronic bronchitis (J41.0) Active confirmed Problem Hormone replacement therapy (114267142) Hormone replacement therapy (Z79.890) Active confirmed Problem Hyperlipidaemia (93624137) Hyperlipidemia, unspecified hyperlipidemia type (E78.5) Active confirmed Problem Raised antinuclear antibody (512111704) RYAN positive (R76.8) Active confirmed Problem Joint pain (47853174) Arthralgia, unspecified joint (M25.50) Active confirmed Vital Signs Heart Rate 82 /min 04/24/2025 Blood pressure diastolic 74 mm Hg 04/24/2025 Height 61.50 in 04/24/2025 Blood pressure systolic 118 mm Hg 04/24/2025 Weight 156.6 lbs 04/24/2025 BMI 29.11 kg/m2 04/24/2025 Encounters Encounter Location Date Provider Diagnosis [facility] [address] [facility] [address] [place], [place] [id number] 10/24/2024 Abimael Singh Essential hypertensi on I10 ; Osteopenia M85.80 ; Mixed hyperlipidemia E78.2 ; Vitamin B12 deficiency E53.8 and Hypothyroidism (acquired) E03.9 [facility] [address] [facility] [address] [place], [place] [id number] 02/20/2025 Erik Earlington Essential hypertensi on I10 ; Hyperlipidemia, unspecified hyperlipidemia type E78.5 ; Hypothyroidism (acquired) E03.9 ; Hyperuricemia E79.0 ; Vitamin B12 deficiency E53.8 and BMI 28.0-28.9,adult Z68.28 [facility] [address] [facility] [address] [place], [place] [id number] 03/13/2025 Erik Earlington Essential hypertensi on I10 ; Hypothyroidism (acquired) E03.9 ; Mixed hyperlipidemia E78.2 and BMI 29.0-29.9,adult Z68.29 [facility] [address] [facility] [address] [place], [place] [id number] 04/24/2025 Abimael Singh Essential hypertensi on I10 ; Hormone replacement therapy Z79.890 ; Mixed hyperlipidemia E78.2 ; Hypothyroidism (acquired) E03.9 ; BMI 29.0-29.9,adult Z68.29 and Osteopenia M85.80 [facility] [address] [place], [place] [id number] 12/14/2024 Abimael Singh [facility] [address] [facility] [address] [place], [place] [id number] 02/03/2025 Abimael Singh [facility] [address] [facility] [address] [place], [place] [id number] 02/13/2025 Abimael Singh Hormone replacement therapy Z79.890 [facility] [address] [facility] [address] [place], [place] [id number] 02/22/2025 Erik Earlington [facility] [address] [facility] [address] [place], [place] [id number] 02/24/2025 Erik Earlington Essential hypertensi on I10 Assessments Encounter Date Diagnosis (ICD Code) Assessment Notes Treatment Notes Treatment Clinical Notes Section Notes 10/24/2024 Essential hypertension (ICD-10 - I10) 10/24/2024 Osteopenia (ICD-10 - M85.80) 02/13/2025 Hormone replacement therapy (ICD-10 - Z79.890) 02/20/2025 Essential hypertension (ICD-10 - I10) 02/24/2025 Essential hypertension (ICD-10 - I10) 03/13/2025 Hypothyroidism (acquired) (ICD-10 - E03.9) 03/13/2025 Essential hypertension (ICD-10 - I10) Much improved 02/20/2025 Hyperlipidemia, unspecified hyperlipidemia type (ICD-10 - E78.5) 04/24/2025 Essential hypertension (ICD-10 - I10) 04/24/2025 Hormone replacement therapy (ICD-10 - Z79.890) 04/24/2025 Mixed hyperlipidemia (ICD-10 - E78.2) 03/13/2025 Mixed hyperlipidemia (ICD-10 - E78.2) 02/20/2025 Hypothyroidism (acquired) (ICD-10 - E03.9) 10/24/2024 Mixed hyperlipidemia (ICD-10 - E78.2) 10/24/2024 Vitamin B12 deficiency (ICD-10 - E53.8) 02/20/2025 Hyperuricemia (ICD-10 - E79.0) 03/13/2025 BMI 29.0-29.9,adult (ICD-10 - Z68.29) 04/24/2025 Hypothyroidism (acquired) (ICD-10 - E03.9) 02/20/2025 Vitamin B12 deficiency (ICD-10 - E53.8) 10/24/2024 Hypothyroidism (acquired) (ICD-10 - E03.9) 04/24/2025 BMI 29.0-29.9,adult (ICD-10 - Z68.29) 04/24/2025 Osteopenia (ICD-10 - M85.80) 02/20/2025 BMI 28.0-28.9,adult (ICD-10 - Z68.28) Plan Of Treatment Next Appt Details Provider Name:Abimael Betancourt er, 09/11/2025 10:45:00 AM, [address], [address], [place], [id number], Insurance Providers Payer Name Payer Address Payer Phone Subscriber Number Group Number Insured Name Patient Relationship to Insured Coverage Start Date Coverage End Date MEDICARE PART B [address] [address] [place] [address] [id number] RISHABH AUSTIN Self - patient is the insured [facility] [address] [place] [address] [id number] RISHABH CONCEPCION Self - patient is the insured Medications Administered Medication Instructions Date of Administration Dosage Notes B-07/02/2020 1 mL B-07/31/2020 1 mL Medical (General) History Medical History History ICD Code COPD Hyperlipidemia Hypothyroidism Cologuard Negative 2023 Surgical History Surgery Date(Month/Year) Tonsillectomy 1958 Appendectomy 1963 Hysterectomy 1981 Heart Cath 12/23/2018 Colonoscopy, Margaret Hawthorne 2018 RT Shoulder Steroid Inhection 02/26/2025
--- NOTE | 2025-06-05 09:13 | A.OFFVIS_ITS ---
[facility] Disclaimer: The information contained in this section may have been updated after the patient was seen, as this information can be updated by other users. Medical History Ankle fracture Hypothyroidism Hormone replacement therapy COPD (chronic obstructive pulmonary disease) HLD (hyperlipidemia) Cancer Surgical History History of partial hysterectomy History of appendectomy Hx of tonsillectomy Family History Other Cancer Thyroid disorder Social History Smoking Status: Light tobacco smoker tobacco type: cigarettes packs per day: 1 second hand exposure: Yes alcohol intake: current alcohol intake frequency: holidays/special occasions only substance use type: denies use current occupational status: other Travel in the last 8 weeks?: None household members: spouse housing: house current occupation: SELF current occupational exposures/hazards: No caffeine: Yes PM Subjective & Objective Subjective Subjective:: Patient is a pleasant 69-year-old female who presents today for follow-up of her right SI and right bursa injection on 05/02/2025. She states that she did have 3 to 4 days of 100% relief and then it did start to come back a little bit. Patient rates her pain today a 2 out of 10. She is still reporting at least 70% improvement. She states that she notices that it is still present but nothing like what it was. She states the numbness into her upper thigh has really significantly improved as well. She is able to do more with overall decreased pain. She denies any other changes. Her Emile has been reviewed and is appropriate. She is prescribed compounded cream from our office and [facility]. Review of Systems: General: No recent weight changes, no fever, no sleep disturbances Respiratory: No cough, no shortness of air, no recurring pulmonary infections Cardiovascular/peripheral vascular: No chest pain, no palpitations, no edema, no shortness of breath Gastrointestinal: No new onset incontinence, normal bowel movements reported Genitourinary: No new onset incontinence Musculoskeletal: Low back pain Psychiatric: [Normal mood/affect] Neurological: [Denies weakness in extremities], [denies balance issues] Pain at rest (0-10 scale): 2 Objective Objective:: Physical Exam: General: Alert and oriented x3, no acute distress, pleasant and cooperative Lungs: Respirations even and unlabored, symmetrical chest expansion Eyes: PERRL Musculoskeletal: Flexion and extension of lumbar [spine] within normal limits Neurological: Speech clear, no gross sensory deficit Has patient had previous pain injection?: Yes Percent improvement in pain since last injection: 100% Conservative treatment options previously tried: Home exercise plan Length of treatment: Longer than 12 weeks Meds Home Medications and Allergies Home Medications ?Medication ?Instructions ?Recorded ?Confirmed ?Type albuterol sulfate 90 mcg/actuation 90 mcg inhalation A S NEEDED PRN SOA 11/13/17 05/02/25 History aerosol inhaler (Ventolin HFA) aspirin 81 mg tablet,delayed 81 mg PO DAILY PREVENTATI VE 11/13/17 05/02/25 History release cholecalciferol (vitamin D3) 50 2,000 unit PO DAILY TH YROID 11/13/17 05/02/25 History mcg (2,000 unit) capsule (Vitamin D3) conjugated estrogens 0.625 mg 0.625 mg PO DAILY HORMON E 11/13/17 05/02/25 History tablet (Premarin) REPLACEMENT pravastatin 40 mg tablet 40 mg PO DAILY High choleste rol 11/13/17 05/02/25 History (Pravachol) umeclidinium 62.5 mcg-vilanterol 1 puff inhalation BID Breathing 11/13/17 05/02/25 History 25 mcg/actuation powdr for problems inhalation (Anoro Ellipta) albuterol sulfate 2.5 mg/3 mL 2.5 mg (3 mL) inhalation QID PRN 03/19/18 05/02/25 Rx (0.083 %) solution for nebulization shortness of breat h or wheezing #180 mL albuterol sulfate 2.5 mg/3 mL 2.5 mg (3 mL) IH Q4-6H # 60 mg 06/10/21 05/02/25 Rx (0.083 %) solution for nebulization levothyroxine 88 mcg tablet See Rx Instructions .Route 07/14/23 05/02/25 Rx .COMPLEX #90 tabs New Prescriptions to Start Prescriptions: Allergies Allergy/AdvReac Type Severity Reaction Status Date / Time almond Allergy Severe Hives Verified 02/14/25 11:06 Penicillins Allergy Severe Swelling Verified 02/14/25 11:06 of Lip/Tongue/Throat Sulfa (Sulfonamide Allergy Severe Swelling Verified 02/14/25 11:06 Antibiotics) of Lip/Tongue/Throat tetanus and diphtheria Allergy Severe Unknown Verified 02/14/25 11:06 toxoids allergy reaction codeine Allergy Mild Hives Verified 02/14/25 11:06 meperidine (From Demerol) Allergy Mild Hives Verified 02/14/25 11:06 morphine Allergy Mild Hives Verified 02/14/25 11:06 Assessment and Plan *Assessment and plan (1) Sacroiliitis: Status: Acute Category: Medical Code(s): M46.1 - Sacroiliitis, not elsewhere classified Plan Patient has had significant improvement and does not require any additional injection therapy at this time. Patient will return to clinic in 6 weeks. Patient has been instructed to contact the clinic with any concerns before the next appointment. Dr. Burgos has reviewed this note and agrees with this plan of care. This note was dictated using voice recognition software and make contain errors or omissions. All injections are used with Lidocaine, Bupivacaine and dexamethasone. Occasionally urine drug screen is needed to verify patient's compliance with our office pain contract. This is ordered based off specific treatments related to chronic pain with the potential to abuse certain medications.
[2025-06-05 11:44] VITALS: BP 111/63; PULSE 58; RESP 18; O2SAT 97; BMI 26.9
== END 2025-06-05 23:59 | disposition home or self-care (01) ==
LOC: SC.PAIN 08:44
PROVIDERS: PCP Family Medicine; Visit Provider Nurse Practitioner Family
DX: M46.1 Sacroiliitis, not elsewhere classified (principal)
CPT/HCPCS: 99212; G0463

== ENCOUNTER 2025-07-11 12:37 | Outpatient (CLI) | payer MEDICARE, BC, SELFPAY ==
--- OUTSIDE RECORDS SUMMARY | 2025-07-11 12:39 | XMS_ITS | Clinical Summary ---
Author Organization [facility] Address [address] [place] [address] Care Team Providers Care Tip Tester Name Role Phone Jun Singh MD Primary Care Provider [phone] Allergies Active Allergy Reactions Criticality Noted Date [...] Description 08/02/2025 2:00 PM EDT Office Visit [facility] R[facility] [address] [address] Hiren Wilks MD [address] [address] Health Maintenance Due Date Last Done Comments [...] CHEST WITHOUT CONTRAST-03/11/2017: INDICATION: COUGH, SOA, WHEEZING; I25-Liljk; R06.02-Shortness of breath; R06.2-Wheezing, cough and wheezing. [...] CHEST WITHOUT CONTRAST-03/11/2017: INDICATION: COUGH, SOA, WHEEZING; U67-Gzeyo; R06.02-Shortness of breath; R06.2-Wheezing, cough and wheezing. [...] Recently Relevant to Health [place] [address] MEDICARE A & B [facility] SUPP Advance Directives Documents on File Type Date Recorded Patient Pelletizer Tender Expl anation LIVING WILL - SCAN 12/23/2018 7:46 AM LETY NG WILL 09-26-2013 Care Teams Tip Tester Relationship Specialty Start Date End Date Jun Singh MD [address] [facility] [address] [place] [id number] PCP - General Family Medicine 03/21/24
--- NOTE | 2025-07-11 12:42 | MM_ITS ---
PROCEDURE INFORMATION: Exam: MG Bilateral Screening 3D Mammography Exam date and time: 07/11/2025 1:02 PM Age: 69 years old Clinical indication: Screening examination TECHNIQUE: Imaging protocol: Bilateral Screening tomosynthesis and 2D mammography including computer-aided detection (CAD) when performed. COMPARISON: MG MM DIG SCREENING MAMM BI W/CAD 07/08/2024 1:38 PM FINDINGS: MAMMOGRAPHY: Breast composition: There are scattered areas of fibroglandular density. Mass: None. Architectural distortion: None. Calcifications: No suspicious calcifications. Asymmetric density: None. Skin thickening: None. Axillary adenopathy: None. IMPRESSION: No mammographic evidence of malignancy. Annual screening is recommended unless otherwise clinically indicated. ASSESSMENT: BI-RADS Category 1: Negative.
== END 2025-07-11 23:59 | disposition home or self-care (01) ==
LOC: RAD 12:38
PROVIDERS: PCP Family Medicine; Visit Provider Family Medicine
DX: Z12.31 Encounter for screening mammogram for malignant neoplasm of breast (principal); R92.323 Mammographic fibroglandular density, bilateral breasts
CPT/HCPCS: 77063; 77067